=== PATIENT | female | born 1960 | race Caucasian/White ===

== ENCOUNTER 2024-06-20 21:41 | Inpatient (IN) | payer OTHER, SELFPAY ==
[2024-06-20 11:29] VITALS: BMI 68.8
[2024-06-20 12:11] VITALS: BP 132/79
--- NOTE | 2024-06-20 12:19 | ED.GENMED ---
ED Provider Triage
-
Patient seen by provider in Triage?: Seen in Triage
63 yo female presents due to an episode of aphasia/dysarthria occurring 5d ago, during halftime of the [employer] game. Lasted 15 mins, reportedly was fatigued for a few hours after the event. Went to today and had a reportedly abnml EKG thus sent
here. Did have labs at
EKG reviewed by me; no clear abnormalities however movement artifact in V4-V6. Concern for TIA. Send for CT head, repeat EKG
History of Present Illness
General
Chief Complaint: Dizziness
Course
Orders/Labs/Results
Orders:
Orders
06/20/24 12:18
CT Head W/o Iv Contrast Urgent
Comment:
Reason For Exam: TIA symptoms
Vital Signs
Initial and Last Documented VS:
Initial Vital Signs
Temp Pulse Resp BP Pulse Ox
98.1 F 87 20 132/79 98
06/20/24 12:11 06/20/24 12:11 06/20/24 12:11 06/20/24 12:11 06/20/24 12:11
Last Documented Vital Signs
Temp Pulse Resp BP Pulse Ox
98.1 F 87 20 132/79 98
06/20/24 12:11 06/20/24 12:11 06/20/24 12:11 06/20/24 12:11 06/20/24 12:11
ED Attending Note
-
Portions of this chart may have been created with voice recognition software.� Occasional wrong word or��sound alike� substitutions may have occurred due to the inherent limitations of voice recognition software.
Discharge Plan
Interventions
Interventions:
*Risk Screen - Suicide Last Done: 06/20/24 12:11
*General Assessment Last Done: 06/20/24 12:11
*Neglect/Abuse Screening Last Done: 06/20/24 12:11
Discharge Date and Time
Print Language: KYRGYZ
[2024-06-20 13:47] VITALS: BP 117/73
--- NOTE | 2024-06-20 16:23 | ED.GENMED ---
History of Present Illness
General
Chief Complaint: Dizziness
Source: patient
Exam Limitations: none
Time Seen by Provider: 06/20/24 16:21
Nursing documentation reviewed up to this point in time: agreed with
History of Present Illness
History of Present Illness:
The patient is a pleasant 63-year-old female who reports that last Sunday, which was 5 days ago, she was watching the [employer] game and suddenly felt dizzy and lightheaded. Patient reports that she noticed extreme sensitivity to the sunlight as well.
However, she denies any vision changes and headache. Patient reports that while driving in the car during that time, she tried to sit but the words sounded all ' jumbled up' and did not make sense. Her reports that she seemed to also have
a droop on 1 side of her face. The patient reports the symptoms lasted a few minutes and have gone away completely. Over the last 4 days she has felt absolutely fine and has had no symptoms of headache, weakness, numbness, dizziness, fevers or
chills. Patient reports that when the symptoms occurred last Sunday, she went by ambulance to [facility] and waited 2 hours but left. Patient saw her primary care doctor today who encouraged her to get a further workup. Patient reports she
feels well and has no complaints at this time. She reports her mom has a history of TIAs but she personally does not. Patient reports that she takes a daily aspirin of 325 mg and takes a statin but is unsure of the dose.
Past History
Past History
ED Past Medical History: Hypercholesterolemia and NIDDM
ED Past Surgical History: Other
Social History
Tobacco: Non-smoker
Alcohol: Other
Drug: None
Personal:
Living: with family
Employment: Other
Family History
Family History: Other
Review of Systems
Review of Systems
Allergies reviewed?: Yes
All Other Systems: ROS reviewed and negative except as documented in HPI and ROS
Constitutional: Reports no symptoms
EENT: Reports other (Light sensitivity which is gone away)
Respiratory: Reports no symptoms
Cardiac: Reports no symptoms
ABD/GI: Reports no symptoms
: Reports no symptoms
Musculoskeletal: Reports no symptoms
Skin: Reports no symptoms
Neurological: Reports other (Difficulty getting the correct words out)
Endocrine: Reports no symptoms
Hematologic/Lymphatic: Reports no symptoms
Psychiatric: Reports no symptoms
Phy Exam
Physical Exam
Physical Exam:
Physical Exam
General: no apparent distress, not acutely ill, smiling, conversational
Neck: supple. no meningeal signs. normal psoterior pharynx
Heart: s1/s2 regular rate and rhythm, no murmur. equal radial pulses.
Lungs: no acute respiratory distress. clear bilaterally
Abdomen: normal bowel sounds. not tender. no CVAT
Neuro: alert and orientedx3. no focal neurological deficits. Extraocular muscles intact. 5 out of 5 strength in all extremities without drift. Normal [id number]-[id number]
Skin: no rash
Psychiatric: well kept. interactive and cooperative
Extremities: no edema. no calf tenderness. negative homans. good distal pulses
Scores
NIH Stroke Score
Level of Consciousness: 0 - Alert
LOC Questions: 0-Answers both correctly
LOC Commands: 0-Performs both correctly
Best Horizontal Gaze: 0-Normal
Visual Holguin: 0=Normal, no visual loss
Facial Palsy: 0=Normal, symmetrical
Motor - Right Arm: 0=No drift 10 seconds
Motor - Left Arm: 0=No drift 10 seconds
Motor - Right Le-No drift 5 seconds
Motor - Left Le-No drift 5 seconds
Limb Ataxia: 0-Absent
Sensation: 0-Normal
Best Language: 0-No aphasia
Dysarthria: 0-Normal
Extinction and Inattention: 0-No abnormality
Total Score:: 0
Course
Orders/Labs/Results
Orders:
Orders
06/20/24 12:18
CT Head W/o Iv Contrast Urgent
Comment:
Reason For Exam: TIA symptoms
06/20/24 12:20
Electrocardiogram (*1) Urgent
Reason for Study: TIA/Stroke
EKG- Treatment ONCE
06/20/24 16:50
NEUROLOGY CONSULT Urgent
Consulting Provider: Ignacio Drake
Was physician already notified: Yes
Reason for consult: TIA
06/20/24 17:19
Complete Blood Count/With Diff Urgent
Comprehensive Metabolic Panel Urgent
06/20/24 17:24
CT Head & Neck Angio W/wo IV Urgent
Comment:
Reason For Exam: aphasia, facial droop. now no symtoms.
Abnormal Lab Results
06/20/24
17:19
RBC 3.65 L 10^6/uL
(4.20-5.40)
Hgb 11.2 L g/dL
(12.0-16.0)
Hct 32.5 L %
(37.0-47.0)
MPV 10.9 H fL
(7.4-10.4)
Chloride 108 H mmol/L
(98-107)
Carbon Dioxide 20 L mmol/L
(22-30)
BUN 41 H mg/dl
(7-17)
Creatinine 1.4 H mg/dL
(0.6-1.0)
Calcium 11.3 H mg/dl
(8.4-10.2)
06/20/24 17:19
06/20/24 17:19
Vital Signs
Initial and Last Documented VS:
Initial Vital Signs
Temp Pulse Resp BP Pulse Ox
98.1 F 87 20 132/79 98
06/20/24 12:11 06/20/24 12:11 06/20/24 12:11 06/20/24 12:11 06/20/24 12:11
Last Documented Vital Signs
Temp Pulse Resp BP Pulse Ox
98.0 F 88 18 141/76 97
06/20/24 13:47 06/20/24 19:42 06/20/24 19:42 06/20/24 19:42 06/20/24 19:42
MDM/Problems Addressed
Differential Diagnosis Includes:
Symptomatic hypertension, TIA, symptomatic hypotension
MDM/Problems Addressed:
Patient presents with resolved symptoms of difficulty speaking and possible facial droop
Chronic conditions affecting care: DM
Acute Exacerbation and/or Progression of Chronic Illness:
Patient is acutely hypertensive here, but only mildly, and hypertension may have contributed to those symptoms 5 days ago
Acute Exacerbation and/or Progression of Chronic Illness: HTN
*Radiology
Radiology exam reviewed: radiology read reviewed
*Pulse Oximetry
Patient hypoxic: no
*EKG
Interpreted by ED Provider?: Yes
Interpretation: abnormal
Comparison EKG: no comparison EKG present
Rate: normal
Rhythm: sinus and PAC's
Preston: normal axis
Interval: first degree heart block
QRS Pattern: normal QRS
Ischemia: no ischemia
*Critical Care Note
Total Time (30-74mins, 75-104mins- exclusive of procedures): Not Applicable
ED Attending Note
-
Portions of this chart may have been created with voice recognition software.� Occasional wrong word or��sound alike� substitutions may have occurred due to the inherent limitations of voice recognition software.
Discharge Plan
Departure
Patient Disposition: Admit
Date of Disposition: 06/20/24
Time of Disposition: 20:07
Admit to: Telemetry
Presentation/result/management discussed w/ accepting MD/DO: Hospitalist
Patient with high blood pressure during this ER visit?: Yes
Condition: Good
Covid-19: Not Applicable
Discharge Problem:
TIA
Referrals:
NONE,* [Family Provider] -
Interventions
Interventions:
*Risk Screen - Suicide Last Done: 06/20/24 12:11
*General Assessment Last Done: 06/20/24 12:11
*Neglect/Abuse Screening Last Done: 06/20/24 12:11
ED- Fall Risk Assessment Last Done: 06/20/24 16:36
*ED COVID-19 Vaccine History Last Done: 06/20/24 16:27
ED- Neurological Assessment Last Done: 06/20/24 16:34
ED Swallowing Screen Last Done: 06/20/24 16:34
Discharge Date and Time
Print Language: IRISH
[2024-06-20 16:38] VITALS: BP 151/90
[2024-06-20 17:32] LABS: % Basophils 0.8 % (0-2); % Eosinophils 3.7 % (0-6); % Immature Granulocytes 0.3 % (0-0.5); % Lymphocytes 30.4 % (20.5-51.1); % Monocytes 5.7 % (1.7-9.3); % Neutrophils 59.1 % (42.2-75.2); Absolute Basophils 0.1 10^3/uL (0-0.2); Absolute Eosinophils 0.4 10^3/uL (0-0.7); Absolute Monocytes 0.6 10^3/uL (0.1-0.6); Absolute Neutrophils 5.8 10^3/uL (1.4-6.5); Hematocrit 32.5 % (37.0-47.0); Hemoglobin 11.2 g/dL (12.0-16.0); Mean Corp Hgb Conc. 34.5 g/dL (33.0-37.0); Mean Corpuscular Hgb 30.7 pg (27.0-31.0); Mean Platelet Volume 10.9 fL (7.4-10.4); Nucleated Red Blood Cells % 0 %; Platelet Count 319 10^3/uL (130-400); Red Blood Cell Count 3.65 10^6/uL (4.20-5.40); Red Cell Dist. Width 13.4 % (11.5-14.5); White Blood Cell Count 9.8 10^3/uL (4.8-10.8)
[2024-06-20 17:47] LABS: ALT (SGPT) 26 U/L (0-35); Albumin 4.8 g/dl (3.5-5.0); Alkaline Phosphatase 64 U/L (38-126); Blood Urea Nitrogen 41 mg/dl (7-17); Calcium 11.3 mg/dl (8.4-10.2); Carbon Dioxide 20 mmol/L (22-30); Chloride 108 mmol/L (98-107); Estimated Creatinine Clearance 65 ml/min; Glucose 96 mg/dl (70-99); Potassium 4.5 mmol/L (3.5-5.1); Sodium 141 mmol/L (135-145); Total Bilirubin 0.3 mg/dl (0.2-1.3); Total Protein 7.4 g/dl (6.3-8.2); eGFR 42.01
[2024-06-20 17:56] LABS: AST (SGOT) 29 U/L (14-36)
--- NOTE | 2024-06-20 18:33 | CON.NEURO ---
Neuro Assessment/Plan
Assessment
Clinically this is a fully resolved TIA
can continue ASA 325, rosuvastatin needs 20 or 40 mg
she is 5 days out, no benefit to starting DAPT now
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
She opts for outpatient workup, obtain CTA and she can be discharged
f/u cardiology for holter monitor vs zio
Consultation
Order
Date of Consultation: 06/20/24
Requesting Provider: Mery Harris
Reason for Consult: TIA
Subjective/Objective
Subjective Data
Date of Service: June 20, 2024
She is a 63 year old woman presenting with episode of dizzy, lightheaded occurred 5 days ago, lasted intermittently for ~1 hr, with associated transient aphasia and facial droop lasting a few minutes.
spontaneously resolved. She took ambulance to [facility], left without being seen. Today saw her PCP
She takes ASA 325 daily, and Rosuvastatin ?dose
Today Saw her PCP, encouraged to come for further workup
Objective Data
Vital Signs
Temp Pulse Resp BP Pulse Ox
36.7 C 88 18 151/90 98
06/20/24 13:47 06/20/24 16:38 06/20/24 16:38 06/20/24 16:38 06/20/24 16:38
Lab Results
06/20/24 17:19
06/20/24 17:19
Sodium 141 mmol/L (135-145) 06/20/24 17:19
Potassium 4.5 mmol/L (3.5-5.1) 06/20/24 17:19
BUN 41 mg/dl (7-17) H 06/20/24 17:19
Glucose 96 mg/dl (70-99) 06/20/24 17:19
Calcium 11.3 mg/dl (8.4-10.2) H 01/03/25 17:19
Patient Allergies
No Known Allergies Allergy (Verified 06/20/24 12:17)
Physical Exam
-
AOx3, speech clear, language intact
VFF, EOMI, face symmetric
full strength b/l UE/LE
sensation intact touch/temp
DTR 1+ symmetric
[2024-06-20 19:42] VITALS: BP 141/76
--- NOTE | 2024-06-20 20:32 | HPS.HSE ---
Family Physician
-
Family Physician: * NONE
Chief Complaint
-
dizzy
History of Present Illness
63-year-old female with PMH for type 2 dm, hld, Thyroid nodules, kidney stones, kidney infection presented to us with dizzy, lightheaded while she was watching [employer] game on Sunday. denied syncopal episode. patient felt sensitive to light. she
was noted to have slurred speech and facial droop which lasted for only two minutes. the dizzy lasted for more than a hour. denied JOSÉ, blurry vision, numbness, tingling or any focal weakness. denied chest pain, sob.denied congestion, cough, fever,
chills. denied abdominal pain,n ,v,d. denied dysuria or hematuria.she waited at the [facility] for two hours on Sunday and left as it was very busy. she was evaluated by PCP, who recommended hospital evaluation.
CT with stenosis, mass in the gland. admitting for further management.
Medical History
Past Medical History
Past Medical History: Reports Other
Additional Past Medical History:
Hypertension type 2 diabetes
enlarged throid glands
kidney infection
HLd
Past Surgical History: Reports Other
Additional Past Surgical History:
thyroid gland mass removed
hernia surgery
c section
Social History
Tobacco: Non-smoker
Alcohol: None
Drug: None
Personal:
Living: With Family
Family History
Family History: Not pertinent
Allergies / Home Medications
Allergies reflects when Allergies were last updated in [facility].
Home Medications with original date entered in [facility]
Allergy/Medication List:
Allergies
Allergy/AdvReac Type Severity Reaction Status Date / Time
No Known Allergies Allergy Verified 06/20/24 12:17
Home Medications
aspirin 325 mg tablet 325 mg PO DAILY 06/20/24
atorvastatin 20 mg tablet 20 mg PO DAILY 06/20/24
dulaglutide 0.75 mg/0.5 mL subcutaneous pen injector (Trulicity) 0.75 mg SC QWEEK 06/20/24
ibuprofen-diphenhydramine citrate 200 mg-38 mg tablet (Advil PM) 2 cap PO HS PRN sleep 06/20/24
metformin 500 mg tablet 500 mg PO BID 06/20/24
vitamin D3-vitamin K2 1 tab PO DAILY 06/20/24
Review of Systems
-
Constitutional: Reports No Symptoms
EENT: Reports No Symptoms
Respiratory: Reports No Symptoms
Cardiac: Reports No Symptoms
Abdomen/GI: Reports No Symptoms
: Reports No Symptoms
Musculoskeletal: Reports No Symptoms
Skin: Reports No Symptoms
Neurological: Reports Dizzy
Endocrine: Reports No Symptoms
Hematologic/Lymphatic: Reports No Symptoms
Psych: Reports No Symptoms
Physical Exam
Vital Signs
Vital Signs
Temp Pulse Resp BP Pulse Ox
98.0 F 88 18 141/76 97
06/20/24 13:47 06/20/24 19:42 06/20/24 19:42 06/20/24 19:42 06/20/24 19:42
Physical Exam
General: Well Developed, Well Nourished and No Apparent Distress
HEENT: NormoCephalic, Moist mucous membranes and Atraumatic
Respiratory: Clear
Cardiac: S1/S2 and Regular Rhythm; No Murmur or Rub
GI: Soft, Non Tender, Non Distended and Normal Bowel Sounds; No Organomegaly
Rectal: Deferred by Provider
Musculoskeletal: No Clubbing, No Cyanosis and No Edema
Skin: No Rash
Neuro: AO x 3 and Nonfocal/grossly intact
Psych: Calm
Laboratory Results
-
06/20/24 17:19
06/20/24 17:19
Laboratory Results
Total Bilirubin 0.3 mg/dl (0.2-1.3) 06/20/24 17:19
AST 29 U/L (14-36) 06/20/24 17:19
ALT 26 U/L (0-35) 06/20/24 17:19
Alkaline Phosphatase 64 U/L (38-126) 06/20/24 17:19
Data Reviewed
-
CT Scan: Report Reviewed by me
Lab Data: Labs Reviewed by me
Impression/Plan
-
# Possible TIA
-Aspirin statin continued
-patient was evaluated by neuro
-deferred MRi as per neuro.
# Left carotid stenosis
-CT with impression of . SEVERE 70% DIAMETER STENOSIS in the LEFT CAROTID BIFURCATION caused by a large amount of calcific atherosclerotic plaque.
2. Less than 25% diameter stenosis in the proximal right internal carotid artery.
3. No CTA evidence for stenosis in either vertebral artery.
4. 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
5. Moderate discogenic degenerative disease at C5/C6 with a small disc-osteophyte complex causing mild spinal cord compression and central canal stenosis.
HEAD CTA:
1. Absent left posterior cerebral artery P1 segment with a small left posterior communicating artery supplying blood to the left posterior cerebral artery. Diagnostic possibilities are (1) proximal left posterior cerebral artery occlusion or (2)
congenital variant.
2. 70% diameter stenosis in the proximal left intracranial vertebral artery.
3. 70% diameter stenosis in the distal right intracranial vertebral artery.
4. Mild to moderate periventricular white matter leukoaraiosis in the frontal lobes.
-Head CT negative
-vascular consulted
# Right parotid salivary gland tumor
-oncology consulted
# Acute kidney injury/metabolic acidosis
-unclear chronicity
-Creatinine 1.4, BUN 41, CO2 20
-monitor BMP in am
#hxt of parathyroid mass removal
#HLD
-statin
#type 2 Dm
-hold metformin
-sliding scale
-CHO diet
#DVT prophylaxis
-scd
#CODe status
-full code
--- NOTE | 2024-06-20 21:12 | W.PN.UPDATE ---
Update Note
Progress Note Update
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 I agree with history and physical. I concur with the assessment and plan unless stated otherwise.
This is a 63-year-old female with past medical history of prior thyroidectomy, [id number]-frefxmjud diabetes, who presents to the emergency department from a primary care doctor's clinic for evaluation for dizziness and brief neurological episode.
Patient reported that she had an episode the evening few days ago when she was unable to speak. This lasted for about 3 to 5 minutes. She had no other focal neurological deficits. She followed up with her PMD was concerned and did an EKG and
based on that sent her to the emergency department. She is currently asymptomatic. NIHSS equals 0. She denied prior such episodes.
In the ED she was afebrile, hemodynamically stable with a blood pressure 140/75 and a pulse of 86. Head CT was unremarkable. ECG shows a normal sinus rhythm at a rate of 86 with 4 degree AV block and a OR of 214. Otherwise unremarkable. She had
a neurology consult and CT angio done which showed multiple areas of stenosis. SEVERE 70% DIAMETER STENOSIS in the LEFT CAROTID BIFURCATION caused by a large amount of calcific atherosclerotic plaque. Absent left posterior cerebral artery P1
segment with a small left posterior communicating artery supplying blood to the left posterior cerebral artery. Diagnostic possibilities are (1) proximal left posterior cerebral artery occlusion or (2) congenital variant. 70% diameter stenosis in
the proximal left intracranial vertebral artery. 70% diameter stenosis in the distal right intracranial vertebral artery. 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
A&P
Carotid stenosis
- admit to med/observation
- continue aspirin/statin for now
- Vascular consult
- neurology consulted and following
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
- incidental finding. No acute symptoms, oncology consult
DVT PPX - lovenox sq
Code status - full code
[2024-06-20 22:37] LABS: Glucose - Point of Care 121 mg/dl (70-99)
--- NOTE | 2024-06-20 23:01 | W.PN.UPDATE ---
Update Note
Progress Note Update
Patient requested to change code status. Discuss with the patient/ the meaning of full code and DNR. Patient decided to change code status from full code to Limited DNR (Ok with CPR, pressors and defibrillation. No for intubation/
ventilator). Discussion witnessed by the assigned nurse.
[2024-06-20 23:09] VITALS: BP 120/86; BMI 31.1
[2024-06-21 03:26] VITALS: BP 141/77
[2024-06-21 07:45] LABS: Glucose - Point of Care 103 mg/dl (70-99)
[2024-06-21 07:50] VITALS: BP 123/77
[2024-06-21] MEDS: ASPIRIN 325 MG PO (08:02)
[2024-06-21] MEDS: NOVOLOG FLEXPEN-LOW RESISTANCE SC ×3 (08:02→16:41)
[2024-06-21] MEDS: LIPITOR 20 MG PO (08:03)
[2024-06-21 09:01] LABS: Blood Urea Nitrogen 35 mg/dl (7-17); Calcium 10.5 mg/dl (8.4-10.2); Carbon Dioxide 19 mmol/L (22-30); Chloride 109 mmol/L (98-107); Estimated Creatinine Clearance 57 ml/min; Glucose 97 mg/dl (70-99); HDL Cholesterol 60 mg/dl; LDL Cholesterol, Calculated 93 mg/dl; Potassium 4.1 mmol/L (3.5-5.1); Sodium 140 mmol/L (135-145); Total Cholesterol 185 mg/dl (50-199); Triglyceride 161 mg/dl (10-149); Very Low Density Lipoprotein 32 mg/dl (0-30); eGFR > 60.00
--- NOTE | 2024-06-21 09:50 | W.PN.VS ---
Today's Communication / Plan
-
symptomatic carotid stenosis
tentative OR sunday for LCEA
Assessment/Plan
-
Appears to have a left hemispheric TIA and carotic stenosis
- symptomatic carotid lesion
- discussed carotid intervention with patient
- she is agreeable
- tentative plan for OR sunday
- npo sunday night
- cardiac evaluation for risk stratification (history of DM)
- also has parotid mass but ent is going to work up as outpatient
Subjective Data
-
Date of Service: June 21, 2024
patient presents after having what appears to be a tia 5 days ago
dizzy and lightheaded followed by slurred speach which resolved
no previous symptoms
no focal weakness
sx's resolves and patient was seen in [facility]
discharged
following up here per primary
Objective Data
-
Vital Signs
Temp Pulse Resp BP Pulse Ox
98 F 87 16 123/77 99
06/21/24 07:50 06/21/24 07:50 06/21/24 07:50 06/21/24 07:50 06/21/24 07:50
Intake and Output
06/20/24 06/21/24 06/22/24
06:59 06:59 06:59
Intake Total 0 / 0 180 / 180
Balance 0 / 0 180 / 180
Intake:
Oral fluids 0 / 0 180 / 180
Other:
Number of approximated MODERATE 1
amounts of urine
Lab Results
06/20/24 17:19
06/21/24 07:39
Calcium 10.5 mg/dl (8.4-10.2) H 06/21/24 07:39
Total Bilirubin 0.3 mg/dl (0.2-1.3) 06/20/24 17:19
AST 29 U/L (14-36) 06/20/24 17:19
ALT 26 U/L (0-35) 06/20/24 17:19
Alkaline Phosphatase 64 U/L (38-126) 06/20/24 17:19
Total Protein 7.4 g/dl (6.3-8.2) 06/20/24 17:19
Albumin 4.8 g/dl (3.5-5.0) 06/20/24 17:19
Physical Exam
-
rrr
ctab
2+ radial pulses bilat
+ carotid pulses bilat
CTA - 70%Left ICA and CCA stenosis
intracranial vertebral disease
[2024-06-21 10:02] LABS: Glycohemoglobin (HgbA1c) 5.6 % (4.0-5.6)
--- NOTE | 2024-06-21 10:37 | W.PN.NEURO.1 ---
Today's Communication / Plan
-
agree CEA
will sign off
Neuro Assessment/Plan
Assessment
Clinically this is a fully resolved TIA
likely due to L carotid 70% bifurcation stenosis, agree with CEA
bilateral vertebral stenosis, intracranial atherosclerosis can continue ASA 325, increase rosuvastatin 40
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
right parotid tumor 8 mm ENT consulted
Subjective/Objective
Subjective Data
Date of Service: June 21, 2024
no further neuro symptoms
yesterday evening, patient CTA showed L carotid bifurcation 70% stenosis, bilateral vertebral artery 70% stenosis
incidental 8.1 mm right parotid tumor
spoke with ED physician advised admission
Objective Data
Vital Signs
Temp Pulse Resp BP Pulse Ox
36.6 C 87 16 123/77 99
06/21/24 07:50 06/21/24 07:50 06/21/24 07:50 06/21/24 07:50 06/21/24 09:55
Lab Results
06/20/24 17:19
06/21/24 07:39
Sodium 140 mmol/L (135-145) 06/21/24 07:39
Potassium 4.1 mmol/L (3.5-5.1) 06/21/24 07:39
BUN 35 mg/dl (7-17) H 06/21/24 07:39
Glucose 97 mg/dl (70-99) 06/21/24 07:39
Calcium 10.5 mg/dl (8.4-10.2) H 06/21/24 07:39
LDL Cholesterol, Calc 93 mg/dl 06/21/24 07:39
Patient Allergies
No Known Allergies Allergy (Verified 06/20/24 12:17)
--- NOTE | 2024-06-21 11:46 | PTOTSP ---
Speech Therapy:
Pt presents with oropharyngeal swallow function that is within functional limits. Pt with no s/sx of aspiration across PO trials. Pt passed 3oz swallow screen. WBC WNL. No CXR completed this admission. Per neurology, pt exhibits 'fully resolved
TIA,' and opting for no MRI.
Recommend:
1. Continue IDDSI Level 7 (regular) solids and thin liquids
2. Medications whole with thins
3. General aspiration precautions
4. 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
[2024-06-21 11:57] LABS: Glucose - Point of Care 114 mg/dl (70-99)
[2024-06-21 12:11] VITALS: BP 160/96
--- NOTE | 2024-06-21 12:13 | W.PN.HOSP.TC ---
Today's Communication/Plan
-
see below plan
Assessment / Plan
Assessment / Plan
Assessment:
L hemispheric TIA 1 week ago with symptomatic L carotid stenosis
- CT: SEVERE 70% DIAMETER STENOSIS in the LEFT CAROTID BIFURCATION caused by a large amount of calcific atherosclerotic plaque.
- OR tentatively Sunday per Vascular
- continue ASA/Statin per Neurology. LDL 93
- Cardiac pre-op evaluation pending
R parotid Mass
- incidental finding
- d/w ENT Dr. Guzman. Outpatient f/u for FNA and further management.
RANDOLPH - resolved
Type 2 DM
- holding Metformin with recent contrast load
- continue SSI
- A1c: 5.6%
DVT ppx: Lovenox
Code: Full
Anticipated Discharge: > 48 hours
Subjective/Interval History
-
Date of Service: June 21, 2024
denies any new complaints at present
Objective Data
-
Labs:
Laboratory Results
06/21/24
07:39
Sodium 140
Potassium 4.1
Chloride 109 H
Carbon Dioxide 19 L
BUN 35 H
Creatinine 1.0
Glucose 97
Calcium 10.5 H
Vital Signs:
Vital Signs
Temp Pulse Resp BP Pulse Ox
98 F 86 18 160/96 100
06/21/24 12:11 06/21/24 12:11 06/21/24 12:11 06/21/24 12:11 06/21/24 12:11
I&O
06/20/24 06/21/24 06/22/24
06:59 06:59 06:59
Intake Total 0 / 0 180 / 180
Balance 0 / 0 180 / 180
Physical Exam
-
General: No Apparent Distress
HEENT: Normocephalic and Atraumatic
Respiratory: Negative Wheezes
Cardiac: Regular Rhythm and S1/S2
GI: Soft and Nontender
Genito-urinary: No Costovertebral Tender
Musculoskeletal: No Edema
Neuro: AO x 3
Hematologic / Lymphatic: No Lymphadenopathy
Psych: Calm
Data Reviewed
-
Total Time Spent with Patient (in minutes): 42
Labs: Labs Reviewed by me
--- NOTE | 2024-06-21 12:34 | CON.CAR ---
Consultation
Consultation Request
Date/Time Consultation Requested: 06/21/24
Date/Time Consultation Performed: 06/21/24
Requesting Provider: Dr. Sanchez
Performing Provider: Dr. Bain
Reason for Consultation: TIA, carotid artery stenosis
Medical History
-
Chief Complaint: TIA
History of Present Illness:
63-year-old female with hyperlipidemia, diabetes, and obesity who presented with dizziness and transient aphasia; found to have severe left carotid artery stenosis. Patient denies any chest pain, shortness of breath, palpitations, or syncopal
events.
Past Medical History
Past Medical History: Hypercholesterolemia, NIDDM and Other (Hyperparathyroidism)
Past Surgical History: (X 3) and Other (Parathyroidectomy, hernia repair)
Social History
Tobacco: Former Smoker (In college)
Alcohol: Occasional
Drug: None
Personal:
Living: With Family
Employment: Employed
Family History
Family History: Reviewed & Not Pertinent
Allergies / Home Medications
Allergy/AdvReac Type Severity Reaction Status Date / Time
No Known Allergies Allergy Verified 06/20/24 12:17
�Medication �Instructions �Recorded �Confirmed �Type
aspirin 325 mg tablet 325 mg PO DAILY Blood Clot 06/20/24 06/20/24 History
Prevention/Tx
atorvastatin 20 mg tablet 20 mg PO DAILY High Cholesterol 06/20/24 06/20/24 History
dulaglutide 0.75 mg/0.5 mL 0.75 mg SC QWEEK Diabetes 06/20/24 06/20/24 History
subcutaneous pen injector
(Trulicity)
ibuprofen-diphenhydramine citrate 2 cap PO HS PRN sleep 06/20/24 06/20/24 History
200 mg-38 mg tablet (Advil PM)
metformin 500 mg tablet 500 mg PO BID Diabetes 06/20/24 06/20/24 History
vitamin D3-vitamin K2 1 tab PO DAILY Supplement 06/20/24 06/20/24 History
Review of Systems
-
History Source: Patient
All other systems: Negative unless noted
Physical Exam
Vital Signs
Temp Pulse Resp BP Pulse Ox
98 F 86 18 160/96 100
06/21/24 12:11 06/21/24 12:11 06/21/24 12:11 06/21/24 12:11 06/21/24 12:11
Lab Results
06/20/24 17:19
06/21/24 07:39
Physical Exam
General: Well Developed, No Apparent Distress and Comfortable
HEENT: Anicteric
Respiratory: Clear
Cardiac: S1/S2 and Regular Rhythm
Breast: Deferred by me
GI: Soft and Non Tender
Rectal: Deferred by Provider
Musculoskeletal: No Clubbing, No Cyanosis and No Edema
Neuro: AO x 3
Psych: Calm
Impression / Plan
-
63-year-old female with hyperlipidemia, diabetes, and obesity who presented with dizziness and transient aphasia; found to have severe left carotid artery stenosis. Patient denies any chest pain, shortness of breath, palpitations, or syncopal
events.
Severe left carotid artery stenosis/preoperative cardiac evaluation:
-The patient has no active cardiac symptoms.
-EKG with no acute findings.
-Patient clinically stable on examination.
-Patient can proceed with vascular surgery on Sunday as scheduled; will obtain an echocardiogram early Sunday morning prior to surgery to establish baseline cardiac function--this will not preclude patient going to surgery, however.
Hyperlipidemia:
-LDL is 93 (goal is less than 55).
-Was on atorvastatin 20 mg daily; has been placed on high-dose Crestor 40 mg daily, which is appropriate.
Diabetes:
-Hemoglobin A1c is controlled at 5.6%.
Obesity:
-Weight loss recommended.
--- NOTE | 2024-06-21 14:39 | CON.MD ---
Consultation - Medical
-
R parotid mass
63 yo c recent TIA, had CTA showing carotid stenosis and for procedure on Sunday
Finding of R parotid mass on CTA
Pt unaware of mass, no pain or facial weakness
PE - No palpable mass in R parotid, facial nerve intact
No cervical adenopathy
R parotid mass
While final report lists this as an 8 cm mass, it is in fact an 8 mm mass, and its' detection was incidental
Typically benign, but should be followed
Possible FNA as outpt, but nonpalpable and could likely be monitored as well
No acute treatment, can be followed and worked up as outpt
[2024-06-21 15:47] VITALS: BP 152/98
[2024-06-21 16:40] LABS: Glucose - Point of Care 106 mg/dl (70-99)
[2024-06-21] MEDS: CRESTOR 40 MG PO (17:05)
[2024-06-21 19:38] VITALS: BP 132/73
[2024-06-21 22:04] LABS: Glucose - Point of Care 89 mg/dl (70-99)
[2024-06-21 23:36] VITALS: BP 143/74
[2024-06-22 03:37] VITALS: BP 130/67
[2024-06-22 07:25] VITALS: BP 121/92
[2024-06-22 07:27] LABS: Glucose - Point of Care 136 mg/dl (70-99)
--- NOTE | 2024-06-22 07:35 | W.PN.VS ---
Today's Communication / Plan
-
tentative or for vignesh am
Assessment/Plan
-
Appears to have a left hemispheric TIA and carotic stenosis
- symptomatic carotid lesion
- discussed carotid intervention with patient
- she is agreeable
- tentative plan for OR sunday
- npo sunday night
- ok from cardiology standpoint
- also has parotid mass but ent is going to work up as outpatient
Subjective Data
-
Date of Service: June 22, 2024
doing well
no issues
Objective Data
-
Vital Signs
Temp Pulse Resp BP Pulse Ox
97.7 F 81 16 130/67 99
06/22/24 03:37 06/22/24 03:37 06/22/24 03:37 06/22/24 03:37 06/22/24 03:37
Intake and Output
06/21/24 06/22/24 06/23/24
06:59 06:59 06:59
Intake Total 0 / 0 900 / 900
Balance 0 / 0 900 / 900
Intake:
Oral fluids 0 / 0 900 / 900
Other:
Number of approximated MODERATE 1 2
amounts of urine
Calcium 10.5 mg/dl (8.4-10.2) H 06/21/24 07:39
Total Bilirubin 0.3 mg/dl (0.2-1.3) 06/20/24 17:19
AST 29 U/L (14-36) 06/20/24 17:19
ALT 26 U/L (0-35) 06/20/24 17:19
Alkaline Phosphatase 64 U/L (38-126) 06/20/24 17:19
Total Protein 7.4 g/dl (6.3-8.2) 06/20/24 17:19
Albumin 4.8 g/dl (3.5-5.0) 06/20/24 17:19
Physical Exam
-
stable
rrr
ctab
neuro intact
[2024-06-22] MEDS: NOVOLOG FLEXPEN-LOW RESISTANCE SC (07:50)
[2024-06-22 08:24] LABS: Hematocrit 30.4 % (37.0-47.0); Hemoglobin 10.6 g/dL (12.0-16.0); Mean Corp Hgb Conc. 34.9 g/dL (33.0-37.0); Mean Corpuscular Hgb 30.7 pg (27.0-31.0); Mean Corpuscular Volume 88.1 fL (81.0-99.0); Mean Platelet Volume 10.8 fL (7.4-10.4); Platelet Count 278 10^3/uL (130-400); Red Blood Cell Count 3.45 10^6/uL (4.20-5.40); Red Cell Dist. Width 13.4 % (11.5-14.5); White Blood Cell Count 7.9 10^3/uL (4.8-10.8)
[2024-06-22] MEDS: ASPIRIN 325 MG PO (08:37)
[2024-06-22] MEDS: FLUSH (NSS) 1 FLUSH IV (08:38)
[2024-06-22 08:49] LABS: Blood Urea Nitrogen 30 mg/dl (7-17); Calcium 10.8 mg/dl (8.4-10.2); Carbon Dioxide 22 mmol/L (22-30); Chloride 107 mmol/L (98-107); Estimated Creatinine Clearance 63 ml/min; Glucose 118 mg/dl (70-99); Sodium 138 mmol/L (135-145); eGFR > 60.00
[2024-06-22 08:57] LABS: Potassium 4.3 mmol/L (3.5-5.1)
[2024-06-22 11:22] VITALS: BP 127/70
[2024-06-22 11:55] LABS: Glucose - Point of Care 168 mg/dl (70-99)
[2024-06-22] MEDS: NOVOLOG FLEXPEN-LOW RESISTANCE 1 UNITS SC (12:19)
--- NOTE | 2024-06-22 12:59 | W.PN.HOSP.TC ---
Today's Communication/Plan
-
NPO p MN for possible vascular/OR tomorrow
hold MFM use SSI
continue ASA/statin
Assessment / Plan
Assessment / Plan
Assessment:
L hemispheric TIA 1 week ago with symptomatic L carotid stenosis
- CT: SEVERE 70% DIAMETER STENOSIS in the LEFT CAROTID BIFURCATION caused by a large amount of calcific atherosclerotic plaque.
- OR tentatively Sunday per Vascular pending OR room/anesthesia availability.
- continue ASA/Statin per Neurology. LDL 93
- Cardiac pre-op evaluation appreciated. Echo Sunday
R parotid Mass (8 mm per ENT. Not 8 cmas reported from Radiology)
- incidental finding
- d/w ENT Dr. Guzman. Outpatient f/u for FNA and further management.
RANDOLPH - resolved
Type 2 DM
- holding Metformin with recent contrast load and possible contrast usage in OR
- continue SSI (moderate)
- A1c: 5.6%
DVT ppx: Lovenox
Code: Full
Anticipated Discharge: > 48 hours
Subjective/Interval History
-
Date of Service: June 22, 2024
no new complaints
Objective Data
-
Labs:
Laboratory Results
06/22/24
07:19
WBC 7.9
Hgb 10.6 L
Hct 30.4 L
Plt Count 278
Sodium 138
Potassium 4.3
Chloride 107
Carbon Dioxide 22
BUN 30 H
Creatinine 0.9
Glucose 118 H
Calcium 10.8 H
Vital Signs:
Vital Signs
Temp Pulse Resp BP Pulse Ox
97.7 F 66 18 127/70 97
06/22/24 11:22 06/22/24 11:22 06/22/24 11:22 06/22/24 11:22 06/22/24 11:22
I&O
06/21/24 06/22/24 06/23/24
06:59 06:59 06:59
Intake Total 0 / 0 900 / 900
Balance 0 / 0 900 / 900
Physical Exam
-
General: No Apparent Distress
HEENT: Normocephalic and Atraumatic
Respiratory: Negative Wheezes
Cardiac: Regular Rhythm and S1/S2
GI: Soft and Nontender
Genito-urinary: No Costovertebral Tender
Musculoskeletal: No Cyanosis
Neuro: AO x 3
Hematologic / Lymphatic: No Lymphadenopathy
Psych: Calm
Data Reviewed
-
Total Time Spent with Patient (in minutes): 41
Labs: Labs Reviewed by me
[2024-06-22 15:20] VITALS: BP 155/84
[2024-06-22 16:34] LABS: Glucose - Point of Care 179 mg/dl (70-99)
[2024-06-22] MEDS: NOVOLOG FLEXPEN-MODERATE RESISTANCE 1 UNITS SC (17:08)
[2024-06-22] MEDS: CRESTOR 40 MG PO (17:08)
[2024-06-22 19:30] VITALS: BP 162/88
[2024-06-22 21:22] LABS: Glucose - Point of Care 135 mg/dl (70-99)
[2024-06-22 23:59] VITALS: BP 172/87
[2024-06-23] VITALS (14 sets, daily range): BP systolic 101–149; BP diastolic 66–95
[2024-06-23 05:52] LABS: Glucose - Point of Care 117 mg/dl (70-99)
[2024-06-23 07:18] LABS: Hematocrit 31.9 % (37.0-47.0); Hemoglobin 10.9 g/dL (12.0-16.0); Mean Corp Hgb Conc. 34.2 g/dL (33.0-37.0); Mean Corpuscular Hgb 30.4 pg (27.0-31.0); Mean Corpuscular Volume 88.9 fL (81.0-99.0); Mean Platelet Volume 10.6 fL (7.4-10.4); Platelet Count 309 10^3/uL (130-400); Red Blood Cell Count 3.59 10^6/uL (4.20-5.40); Red Cell Dist. Width 13.2 % (11.5-14.5); White Blood Cell Count 9.6 10^3/uL (4.8-10.8)
--- NOTE | 2024-06-23 07:27 | W.PN.UPDATE ---
Update Note
Progress Note Update
Seen and evaluated. Reviewed all other notes and imaging studies. Discussed with patient findings. Discussed recommendations. Symptomatic left carotid artery stenosis. (She is right-hand dominant, but had dizziness/speech dysarthria). Seen by
neurology. [facility] to have had a TIA. Their recommendations also are for revascularization of the left carotid. Discussed with patient revascularization modalities. Discussed carotid endarterectomy versus carotid stenting (TCAR favorably over
transfemoral). Discussed based on her anatomy and my review of the imaging, recommendation for carotid endarterectomy. Discussed procedure at length. Discussed anticipated outcomes/recovery. Discussed risks including but not limited to bleeding,
infection, cardiac complication/AK, cranial nerve injury, stroke (in the symptomatic setting likely approximately 2%). She understands all wishes to proceed. Plan LEFT carotid endarterectomy.
I did discuss with her scheduling difficulties based on full schedule today, may need to wait till Sunday morning (06/25/2024). We will reassess later this morning into the afternoon to see how the schedule is proceeding to see if we can keep her
on the schedule for today or whether she will need to be moved to 06/25/24.
[2024-06-23] MEDS: NOVOLOG FLEXPEN-MODERATE RESISTANCE SC ×3 (07:30→19:22)
[2024-06-23 08:00] LABS: Blood Urea Nitrogen 32 mg/dl (7-17); Carbon Dioxide 24 mmol/L (22-30); Chloride 104 mmol/L (98-107); Estimated Creatinine Clearance 63 ml/min; Glucose 127 mg/dl (70-99); Potassium 4.3 mmol/L (3.5-5.1); Sodium 138 mmol/L (135-145); eGFR > 60.00
[2024-06-23] MEDS: ASPIRIN 325 MG PO (08:31)
--- NOTE | 2024-06-23 10:37 | W.PN.HOSP.TC ---
Today's Communication/Plan
-
NPO for possible OR with Vascular pending availability
await Echo read
Assessment / Plan
Assessment / Plan
Assessment:
L hemispheric TIA 1 week ago with symptomatic L carotid stenosis
- CT: SEVERE 70% DIAMETER STENOSIS in the LEFT CAROTID BIFURCATION caused by a large amount of calcific atherosclerotic plaque.
- OR tentatively today per Vascular pending OR room/anesthesia availability.
- continue ASA/Statin per Neurology. LDL 93
- Cardiac pre-op evaluation appreciated. Echo completed, report pending.
R parotid Mass (8 mm per ENT. Not 8 cmas reported from Radiology)
- incidental finding
- d/w ENT Dr. Guzman. Outpatient f/u for FNA and further management.
RANDOLPH - resolved
Type 2 DM
- holding Metformin with recent contrast load and possible contrast usage in OR
- continue SSI (moderate)
- A1c: 5.6%
DVT ppx: Lovenox
Code: Full
Anticipated Discharge: > 48 hours
Subjective/Interval History
-
Date of Service: June 23, 2024
no new complaints
Objective Data
-
Labs:
Laboratory Results
06/23/24
06:31
WBC 9.6
Hgb 10.9 L
Hct 31.9 L
Plt Count 309
Sodium 138
Potassium 4.3
Chloride 104
Carbon Dioxide 24
BUN 32 H
Creatinine 0.9
Glucose 127 H
Calcium 11.0 H
Vital Signs:
Vital Signs
Temp Pulse Resp BP Pulse Ox
97.7 F 86 16 143/80 98
06/23/24 07:50 06/23/24 07:50 06/23/24 07:50 06/23/24 07:50 06/23/24 07:50
I&O
06/22/24 06/23/24 06/24/24
06:59 06:59 06:59
Intake Total 900 / 900 1440 / 1440
Balance 900 / 900 1440 / 1440
Physical Exam
-
General: No Apparent Distress
HEENT: Normocephalic and Atraumatic
Respiratory: Negative Wheezes
Cardiac: Regular Rhythm and S1/S2
GI: Soft
Genito-urinary: No Costovertebral Tender
Neuro: AO x 3
Hematologic / Lymphatic: No Lymphadenopathy
Psych: Calm
Data Reviewed
-
Total Time Spent with Patient (in minutes): 42
Labs: Labs Reviewed by me
[2024-06-23 12:00] LABS: Glucose - Point of Care 124 mg/dl (70-99)
--- NOTE | 2024-06-23 14:53 | PTCARENOTE ---
Received patient this am AAOx3. NIH -0 GCS-15. Pt off unit this am for echo. Pt NPO for Left CEA today. Pt OOB ambulating in room with a steady gait independently. Pt offered no complaints. Made patient comfortable. Cont to assess patient status.
Pt sent to [facility] an 1445 to be prepped for Left CEA .
[2024-06-23] MEDS: ANCEF 10 IV (15:05)
[2024-06-23] MEDS: PERIDEX 0.12% ORAL RINSE 15 ML PO (15:06)
[2024-06-23 15:10] LABS: Glucose - Point of Care 113 mg/dl (70-99)
[2024-06-23] MEDS: BACTROBAN 2% OINTMENT 0.5 APPLIC NASAL (15:32)
--- NOTE | 2024-06-23 16:27 | W.SUR.PREOP ---
Pre-Operative Surgical Note
-
I have examined this patient prior to the performance of the scheduled procedure.
The patient's condition is unchanged from the time of the current History and
Physical and the patient is able to undergo the scheduled procedure.
--- NOTE | 2024-06-23 18:38 | W.SUR.POST ---
Surgical Immediate Post Op
Note
Pre Op Diagnosis: Carotid stenosis
Post Op Diagnosis: Same
Procedure Performed: Left CEA with bovine pericardial patch angioplasty and EEG monitoring, intraoperative shunting
Primary Surgeon: Srikanth
Assist: Ayah DELACRUZ
Anesthesia: General
Estimated Blood Loss: 50 cc
Fluids: See anesthesia flowsheet
Drains/Shunts: Shunt
Specimens/Cultures: Left carotid plaque
Doppler/Duplex/Angio (Y/N): Yes
Complications: None
Operative Findings: Woke from anesthesia moving all extremities
--- NOTE | 2024-06-23 18:50 | OR.RPT ---
Operative Report
Operative Report
PROCEDURE DATE: 06/23/2024
Preoperative diagnosis: Symptomatic critical left carotid artery stenosis
Postoperative diagnosis: Same
Procedure: Left carotid endarterectomy with bovine pericardial patch angioplasty and intraoperative EEG/SSEP monitoring (with temporary intraoperative shunt placement).
Surgeon: Srikanth
Electrical Estimator: ORA Poon, required for all aspects of procedure including assistance with traction/countertraction, following of suture line, assistance with closure.
Complications: None
Anesthesia: General
Indications for procedure:
Symptomatic left carotid stenosis. Symptoms of speech slurring/dysarthria 1 week prior. Risk/benefits/alternatives of carotid endarterectomy were fully discussed. Patient understood and wished to proceed.
Description of procedure:
Patient was identified brought to the operating room placed on the table in supine position. After the adequate administration of anesthesia and perioperative antibiotics she was prepped and draped in the standard surgical fashion. A standard
preoperative timeout was undertaken and everybody was in agreement the plan. A standard longitudinal incision was made in the left neck that was carried through the skin subcutaneous tissue. Using the electrocautery dissection was carried through
the platysma muscle layer and then alongside the anterior medial border of the sternocleidomastoid muscle. Then using a combination of sharp dissection with the Metzenbaum scissors and electrocautery I dissected along the anterior medial border of
the internal jugular vein. The common facial vein branch was ligated between silk ties and then divided. I then deepened my retraction. The common carotid artery was identified and carefully dissected away from the surrounding structures take
great care to avoid any injury to the structures. A vessel loop was passed around it which was double looped, but not yet tightened. Note the vagus nerve was visualized in its usual course posterior lateral to the common carotid artery, and was
protected from harm's way. I then continued my dissection up the common carotid artery to the bulb staying only on the anterior surface of the carotid artery. Then I carried the dissection up to the internal carotid artery and then to the distal
internal carotid artery. I identified where it was soft (approximately 2 cm beyond the origin, correlating to CT scan findings) and carefully circumferentially dissected the internal carotid artery with minimal mobilization and passed a vessel loop
around it. Note the hypoglossal nerve was preserved from harm's way. The patient was given an appropriate dose of heparin 8000 units. Next I dissected the anterior surface of the external carotid artery and superior thyroid branches. These were
then carefully circumferentially dissected with minimal mobilization and vessel loops passed around these which were double looped but not yet tightened. After 3 minutes of heparin circulation time and confirmation of optimization of the blood
pressure with my anesthesiology colleagues, I clamped the distal internal carotid artery where it was soft. There was no immediate EEG or SSEP changes. After 1 minute of test clamp time there was no changes noted. Therefore at this point, the
vessel loops on the external carotid artery and superior thyroid branches were tightened and the common carotid artery was clamped where it was soft proximally. An arteriotomy was made on the common carotid artery with an 11 blade and extended
using a Barron scissor. I extended the arteriotomy onto the mid to distal internal carotid artery. There was hard calcified plaque, and in the very distal carotid bulb, it resulted in a significant narrowing with irregular coral reef like posterior
plaque as well. A [place] was then used to endarterectomized the plaque. An endarterectomy plane was created, and the plaque was then endarterectomized. Distally I feathered the plaque out to a nice clean endpoint in the distal internal carotid
artery. Next I endarterectomized the intima back to normal intima in the common carotid artery, and the intima was cut flush there. I then grasped the plaque and everted plaque out of the origin of the external carotid artery. The plaque was then
sent off for specimen. During this time, it was noted that the SSEP tracings had reduced in terms of the right lower extremity (despite adequately maintained mean arterial blood pressures). This raised concern, and therefore a shunt was quickly
prepared and inserted in the standard fashion (Bonaparte shunt) into the internal carotid artery and secured with a vessel loop, and then allowed to backbleed, before inserting it into the common carotid artery, where it was secured with a shunt clamp
and a vessel loop. SSEPs then returned to baseline. At this point, the origin of the external carotid artery was carefully visualized and any fine debris were removed with fine forceps. Proximal and distal endpoints were then carefully inspected.
Any fine debris was removed with fine forceps, and the intima was noted to be nicely adherent proximally distally. Next any fine debris were removed throughout the endarterectomy bed with fine forceps. 3 interrupted 7-0 Prolene tacking sutures
were placed to tack the distal endpoint. I then flushed heparinized saline. I was very satisfied. Then, I used a bovine pericardial patch to sew a patch angioplasty with a running 6-0 Prolene suture. Prior to completing and tying down my suture
line, I removed the shunt, backbleeding the branches in doing so. The branches were then reclamped, heparinized saline flush, and then I quickly completed and tied down the suture line. There were no SSEP or EEG changes during this brief interval.
We then restored flow in the common carotid and external carotid arteries. Finally, we released flow in the internal carotid artery. There was excellent pulsatile flow in all 3 vessels. There was an excellent Doppler signal in the internal
carotid artery distal to the patch with a good normal low resistance Doppler signal. There was a good Doppler signal in the external carotid artery as well. Protamine was given to reverse the heparin. Hemostasis was completely achieved. We then
irrigated and confirmed full hemostasis. We then closed in layers with 2-0 Vicryl layer to reapproximate the sternocleidomastoid muscle, followed by 3-0 Vicryl platysma muscle running layer, followed by 4 Monocryl subcuticular stitch. Dermabond
was applied. The patient tolerated procedure well. She awoke moving all extremities to command with tongue in the midline.
[2024-06-23 18:54] LABS: Glucose - Point of Care 171 mg/dl (70-99)
[2024-06-23 19:01] LABS: Hematocrit 29.2 % (37.0-47.0); Mean Corp Hgb Conc. 34.2 g/dL (33.0-37.0); Mean Corpuscular Hgb 30.8 pg (27.0-31.0); Mean Corpuscular Volume 89.8 fL (81.0-99.0); Mean Platelet Volume 10.4 fL (7.4-10.4); Platelet Count 266 10^3/uL (130-400); Red Blood Cell Count 3.25 10^6/uL (4.20-5.40); Red Cell Dist. Width 13.2 % (11.5-14.5); White Blood Cell Count 9.2 10^3/uL (4.8-10.8)
[2024-06-23 19:08] LABS: Hepatitis C Antibody Negative (Negative)
[2024-06-23 19:11] LABS: INR 1.08; PT 14.3 Sec (11.4-14.6)
[2024-06-23 19:12] LABS: APTT 33.6 Sec (23.4-35.0)
[2024-06-23 19:14] LABS: Blood Urea Nitrogen 31 mg/dl (7-17); Calcium 10.5 mg/dl (8.4-10.2); Carbon Dioxide 17 mmol/L (22-30); Chloride 108 mmol/L (98-107); Estimated Creatinine Clearance 71 ml/min; Glucose 145 mg/dl (70-99); Potassium 4.2 mmol/L (3.5-5.1); Sodium 137 mmol/L (135-145); eGFR > 60.00
[2024-06-23] MEDS: NSS 1000 IV (19:52)
[2024-06-23] MEDS: DILAUDID 0.25 MG IV (19:55)
--- NOTE | 2024-06-23 20:20 | SUR.PHASEI ---
patient in pacu post op left carotid, right radial fidelina , zeroed at phlebostatic axis, no neuro deficit noted, initially denied pain. Tearful - worried about her son - anxious to see family. updated, labs sent, Dr Duke visits. Discharge
at 195 - c/o neck 'sore' - 09/25. Thinks she wants something for pain but very anxious to see family. Medicated with dilaudid 0.25mg IV for incisional neck pain and transported to [facility] - transfer from stretcher to bed in [facility] - hand off at
bedside. Family updated.
[2024-06-23] MEDS: CRESTOR 40 MG PO (21:28)
[2024-06-23] MEDS: NOVOLOG FLEXPEN-MODERATE RESISTANCE 1 UNITS SC (21:29)
[2024-06-23 21:39] LABS: Glucose - Point of Care 167 mg/dl (70-99)
--- NOTE | 2024-06-23 22:00 | PTCARENOTE ---
PACU brought pt up, pt anxious, MONTALVO AAOx3, sinus on the monitor c 1st degree, + pulses no edema, R radial A-line zeroed c cuff correlation, lungs clear on RA SpO2 100%, BSx4 round soft nontender, PW pt due to void, L neck wound approximated with
surgical adhesive, 18G L hand, 20G LAC, 20G RFA, NS 80ml, call gonsales within reach, @ bedside and updated, Neuro checks per worklist, otherwise refer to documentation.
[2024-06-23] MEDS: ROXICODONE 5 MG PO (23:05)
[2024-06-24] MEDS: AFRIN NASAL SPRAY 2 SPRAYS NASAL ×2 (00:17→07:15)
--- NOTE | 2024-06-24 00:44 | PTCARENOTE ---
systems reviewed, 4L NC added pt has sleep apnea, dsats in the low 80's, Afrin ordered @ pts request, neuro checks per worklist, otherwise refer to documentation.
[2024-06-24] MEDS: ROXICODONE 5 MG PO (04:19)
[2024-06-24 04:30] LABS: Hematocrit 27.2 % (37.0-47.0); Hemoglobin 9.5 g/dL (12.0-16.0); Mean Corp Hgb Conc. 34.9 g/dL (33.0-37.0); Mean Corpuscular Hgb 30.6 pg (27.0-31.0); Mean Corpuscular Volume 87.7 fL (81.0-99.0); Mean Platelet Volume 10.7 fL (7.4-10.4); Platelet Count 271 10^3/uL (130-400); Red Cell Dist. Width 13.3 % (11.5-14.5)
[2024-06-24 04:40] LABS: INR 1.02; PT 13.7 Sec (11.4-14.6)
[2024-06-24 04:41] LABS: APTT 30.6 Sec (23.4-35.0)
[2024-06-24 04:53] LABS: Blood Urea Nitrogen 34 mg/dl (7-17); Calcium 10.3 mg/dl (8.4-10.2); Carbon Dioxide 19 mmol/L (22-30); Chloride 108 mmol/L (98-107); Estimated Creatinine Clearance 63 ml/min; Glucose 139 mg/dl (70-99); Potassium 4.6 mmol/L (3.5-5.1); Sodium 137 mmol/L (135-145); eGFR > 60.00
--- NOTE | 2024-06-24 05:28 | PTCARENOTE ---
systems reviewed, oxy given for pain per MAR, minimal urine output in container from PW, pt bladder scanned >1000ml, placed on bed [place] pt urinated rescanned for 900, obtained order for straight cath, labs sent, otherwise refer to documentation.
[2024-06-24 06:00] VITALS: BMI 30.6
--- NOTE | 2024-06-24 07:10 | CON.INTV ---
Consultation
Consultation Request
Date/Time Consultation Requested: 06/24/24
Date/Time Consultation Performed: 06/24/24
Performing Provider: Lois
Reason for Consultation: ICU
Medical History
-
History of Present Illness:
Patient is a 63-year-old female with previous history of diabetes, hyperlipidemia, presenting to ER with dizziness lightheadedness that began on Sunday. She then developed slurred speech, facial droop which lasted for 2 minutes. Initial imaging
demonstrated stenosis, parotid gland mass. She was admitted to on 06/20/2024, underwent left CEA with bovine pericardial patch angioplasty EEG monitoring on 06/23/2024. She is transferred to ICU for postoperative management.
Past Medical History
Past Medical History: Other (see list below)
Social History
Tobacco: Non-smoker
Alcohol: None
Drug: None
Family History
Family History: Reviewed & Not Pertinent
Allergies / Home Medications
Allergies
Allergy/AdvReac Type Severity Reaction Status Date / Time
No Known Allergies Allergy Verified 06/20/24 12:17
Home Medications
�Medication �Instructions �Recorded �Confirmed �Last Taken �Type
aspirin 325 mg tablet 325 mg PO DAILY Blood Clot 06/20/24 06/20/24 Unknown History
Prevention/Tx
atorvastatin 20 mg tablet 20 mg PO DAILY High Cholesterol 06/20/24 06/20/24 Unknown History
dulaglutide 0.75 mg/0.5 mL 0.75 mg SC QWEEK Diabetes 06/20/24 06/20/24 06/18/24 History
subcutaneous pen injector
(Trulicity)
ibuprofen-diphenhydramine citrate 2 cap PO HS PRN sleep 06/20/24 06/20/24 Unknown History
200 mg-38 mg tablet (Advil PM)
metformin 500 mg tablet 500 mg PO BID Diabetes 06/20/24 06/20/24 Unknown History
vitamin D3-vitamin K2 1 tab PO DAILY Supplement 06/20/24 06/20/24 Unknown History
Review of Systems
-
History Source: Patient
All other systems: Negative unless noted
Vitals / Labs / Diagnostic Testing
Vital Signs
Temp Pulse Resp BP Pulse Ox
98.0 F 72 15 116/71 99
06/24/24 03:30 06/24/24 06:00 06/24/24 06:00 06/23/24 20:15 06/24/24 06:00
Lab Data
06/24/24 04:08
06/24/24 04:08
Laboratory Results
06/23/24 06/24/24
18:49 04:08
PT 14.3 13.7
INR 1.08 1.02
APTT 33.6 30.6
Diagnostic Testing:
Physical Exam
-
HEENT: Normocephalic, Anicteric and Moist Mucous Membranes
Cardiovascular: S1/S2 and Regular Rhythm
Respiratory: Clear and Non-Labored Respirations
GI: Soft, Non Distended and Non Tender
Neurology: Awake, Alert, Oriented and No Motor Deficits
Skin: Warm, Dry and Good Color
General: Comfortable and Other (NAD)
Assessment
-
Patient is a 63-year-old female with previous history of diabetes, hyperlipidemia, presenting to ER with dizziness lightheadedness that began on Sunday. She then developed slurred speech, facial droop which lasted for 2 minutes. Initial imaging
demonstrated stenosis, parotid gland mass. She was admitted to on 06/20/2024, underwent left CEA with bovine pericardial patch angioplasty EEG monitoring on 06/23/2024. She is transferred to ICU for postoperative management.
Left carotid stenosis status post left CEA 06/23/2024
TIA
Slurred speech, facial droop onset 06/15, admitted 06/20/2024
Incidental parotid gland mass, 8 mm
Hypercalcemia
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
Non insulin-dependent diabetes
Obesity, BMI 30
Plan
Patient is s/p L CEA by vascular surgery service, POD #1
Continue observation following procedure
Follow neurovascular checks per protocol
ASA, betablocker and statin on board
Follow BP monitoring and parameters as set by primary team
Cardiac history noted
Monitor on telemetry
Pain control per protocol
RASS goal 0
No prior history of pulmonary disease, nonsmoker
Stable on RA, no complaints
No prior CXR for review
No prior PFTs for review
Encouraged IS
Diet advancement per protocol
Aspiration precautions
GI prophylaxis if indicated for stress ulcer prevention in the critically ill
Creat at baseline, follow UO
Critical I/Os
Void trials
Replete electrolytes as needed
No signs/symptoms suspicious for infectious etiology at this time
Will observe off antibiotics for now
Follow temperatures/CBC
Hb and platelets postoperatively stable
DVT prophylaxis recommended if not contraindicated based on procedural history -- heparin SQ and mechanical SCDs
Encouraged OOB/PT/OT/ambulation once cleared by surgical team
Discharge planning today per team
Diagnostic Data
Chest X-Ray:
CT Scan:
HCT 06/20/24- No acute intracranial abnormality noted.
H&N - IMPRESSION:
NECK CTA:
1. SEVERE 70% DIAMETER STENOSIS in the LEFT CAROTID BIFURCATION caused by a large amount of calcific atherosclerotic plaque.
2. Less than 25% diameter stenosis in the proximal right internal carotid artery.
3. No CTA evidence for stenosis in either vertebral artery.
4. 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
5. Moderate discogenic degenerative disease at C5/C6 with a small disc-osteophyte complex causing mild spinal cord compression and central canal stenosis.
HEAD CTA:
1. Absent left posterior cerebral artery P1 segment with a small left posterior communicating artery supplying blood to the left posterior cerebral artery. Diagnostic possibilities are (1) proximal left posterior cerebral artery occlusion or (2)
congenital variant.
2. 70% diameter stenosis in the proximal left intracranial vertebral artery.
3. 70% diameter stenosis in the distal right intracranial vertebral artery.
4. Mild to moderate periventricular white matter leukoaraiosis in the frontal lobes.
Echo: 06/23/24- Normal biventricular size and systolic function without regional wall motion abnormality. Estimated LVEF 65-70%. Mild concentric left ventricular hypertrophy. Aortic sclerosis without stenosis. No prior study available for
comparison.
PFT's:
Reports and relevant images were personally reviewed.
-----
Critical care time 50 mins -- this includes review of history, physical exam, medications, hemodynamic/ventilator parameters, laboratory data, imaging and discussion with house staff, pharmacy, respiratory therapy, cartridge maker, and nursing.
[2024-06-24] MEDS: NSS 1000 IV (07:15)
[2024-06-24 07:53] VITALS: BP 147/80
[2024-06-24 07:56] LABS: Glucose - Point of Care 141 mg/dl (70-99)
[2024-06-24 08:12] VITALS: BP 147/80
--- NOTE | 2024-06-24 08:13 | W.PN.VS ---
Today's Communication / Plan
-
Discussed with Dr. Dennison
Assessment/Plan
-
POD 1 left CEA
Plan:
-DC A-line
-DC IV fluids
-Out of bed/ambulate
-P.o. medications
-Increase diet
-Likely ready for DC from vascular standpoint once above is completed
Subjective Data
-
Date of Service: June 24, 2024
Patient seen at bedside this a.m. No events overnight. Patient offers no complaints at this time. Was on Cardene drip for short time which has been weaned off this morning.
Objective Data
-
Vital Signs
Temp Pulse Resp BP Pulse Ox
98.0 F 75 20 116/71 98
06/24/24 03:30 06/24/24 07:30 06/24/24 07:30 06/23/24 20:15 06/24/24 07:43
Intake and Output
06/23/24 06/24/24 06/25/24
06:59 06:59 06:59
Intake Total 1440 / 1440 1040 / 1180 220 / 220
Output Total 850 / 850
Balance 1440 / 1440 190 / 330 220 / 220
Intake:
Oral fluids 1440 / 1440 120 / 180 60 / 60
IV fluids (Total) 920 / 1000 160 / 160
Nss 1,000 ml @ 80 mls/hr IV . 720 / 800 160 / 160
[id number] RERE Rx#:[id number]
normosol 200 / 200
Output:
Urine, Voided 0 / 0
Straight cath output 850 / 850
Other:
Number of approximated MODERATE 2 2
amounts of urine
Lab Results
06/24/24 04:08
06/24/24 04:08
Calcium 10.3 mg/dl (8.4-10.2) H 06/24/24 04:08
Total Bilirubin 0.3 mg/dl (0.2-1.3) 06/20/24 17:19
AST 29 U/L (14-36) 06/20/24 17:19
ALT 26 U/L (0-35) 06/20/24 17:19
Alkaline Phosphatase 64 U/L (38-126) 06/20/24 17:19
Total Protein 7.4 g/dl (6.3-8.2) 06/20/24 17:19
Albumin 4.8 g/dl (3.5-5.0) 06/20/24 17:19
Physical Exam
-
AAOx3
No tachypnea on room air
No tachycardia
Neck site clean, dry, intact, soft, flat
Moves all extremities equally
Tongue midline
--- NOTE | 2024-06-24 08:13 | PTCARENOTE ---
Updated assessment, vital signs ongoing and as documented. Vascular team at bedside this am. Start line removal with plan for mobility training and out of bed this am. Ordering breakfast now, accu data as documented. Follow up medication via emar.
IVF capped. Cardiology team at bedside. Update both vascular and cardiology clear to dc await hospitalist team and follow plan of cares. Continue patient care needs and follow teaching thru day.
[2024-06-24] MEDS: ASPIRIN 325 MG PO (08:21)
--- NOTE | 2024-06-24 08:28 | PTCARENOTE ---
Hospitalist team at [facility]. Follow up plan of cares. Await updates between teams will follow up plan of cares and possible discharge.
--- NOTE | 2024-06-24 08:44 | W.PN.CD ---
Today's Communication / Plan
-
Cont crestor 40
Likely d/c today
We will sign off please call with questions/concerns.
Impression / Plan
-
63-year-old female with hyperlipidemia, diabetes, and obesity who presented with dizziness and transient aphasia; found to have severe left carotid artery stenosis. Patient denies any chest pain, shortness of breath, palpitations, or syncopal
events.
Severe left carotid artery stenosis/preoperative cardiac evaluation:
-The patient has no active cardiac symptoms.
-EKG with no acute findings.
-Patient clinically stable on examination.
-Patient can proceed with vascular surgery on Sunday as scheduled; will obtain an echocardiogram early Sunday morning prior to surgery to establish baseline cardiac function--this will not preclude patient going to surgery, however.
Hyperlipidemia:
-LDL is 93 (goal is less than 55).
-Was on atorvastatin 20 mg daily; has been placed on high-dose Crestor 40 mg daily, which is appropriate.
Diabetes:
-Hemoglobin A1c is controlled at 5.6%.
Obesity:
-Weight loss recommended.
Subjective: Feels well wants to leave
Physical Exam
Vital Signs/Labs
Vital Signs
Temp Pulse Resp BP Pulse Ox
97.9 F 67 20 147/80 99
06/24/24 07:40 06/24/24 08:12 06/24/24 08:12 06/24/24 08:12 06/24/24 08:12
06/23/24 06/24/24 06/25/24
06:59 06:59 06:59
Actual Weight 172 lb 13.478 oz
06/24/24 04:08
06/24/24 04:08
PT 13.7 Sec (11.4-14.6) 06/24/24 04:08
INR 1.02 06/24/24 04:08
APTT 30.6 Sec (23.4-35.0) 06/24/24 04:08
Triglycerides 161 mg/dl (10-149) H 06/21/24 07:39
LDL Cholesterol, Calc 93 mg/dl 06/21/24 07:39
VLDL Cholesterol, Calc 32 mg/dl (0-30) H 06/21/24 07:39
HDL Cholesterol 60 mg/dl 06/21/24 07:39
Physical Exam
Constitutional: No acute distress and Comfortable
EENT: Anicteric
Cardiovascular: Rhythm & rate is regular and Pedal edema is absent
Respiratory: Respiratory effort normal and Lungs clear to auscul.
GI: Soft
Neuro/Psych: AO x 3
Data Reviewed
-
Date of Service: June 24, 2024
EKG: Tracing Personally Visualized and interpreted (sr)
Echo: Report Reviewed by me
Labs: Labs Reviewed by me
[2024-06-24 09:49] VITALS: BP 129/87
--- NOTE | 2024-06-24 09:59 | PTCARENOTE ---
Vascular team on rounds. Update plan of cares, await follow up with hospitalist team. Plan for late day discharge with continued progress. Will ambulate room and ruiz continue to follow. VSS as documented.
--- NOTE | 2024-06-24 10:23 | W.PN.HOSP.TC ---
Today's Communication/Plan
-
dc home with vascular f/u
Assessment / Plan
Assessment / Plan
Assessment:
L hemispheric TIA 1 week ago with symptomatic L carotid stenosis
- CT: SEVERE 70% DIAMETER STENOSIS in the LEFT CAROTID BIFURCATION caused by a large amount of calcific atherosclerotic plaque.
- s/p L CEA 06/23/24
- continue ASA/Statin at discharge
- Echo: mild LVH otherwise normal
R parotid Mass (8 mm per ENT. Not 8 cm's reported from Radiology)
- incidental finding
- d/w ENT Dr. Guzman. Outpatient f/u for FNA and further management.
RANDOLPH - resolved
Type 2 DM
- Resume Metformin in 24 hours
- Resume Trulicity Sunday
- continue SSI (moderate)
- A1c: 5.6%
DVT ppx: Lovenox
Code: Full
More than 30 minutes spent in discharge including
Final examination of the patient
Summarizing hospital stay
Instructions for continuing care to all relevant caregivers
Preparation of discharge records, prescriptions, and referral forms
Total time spent (in minutes): 41
Anticipated Discharge: Within 24 hours
Subjective/Interval History
-
Date of Service: June 24, 2024
s/p CEA
doing well, no complaints
Objective Data
-
Labs:
Laboratory Results
06/24/24
04:08
WBC 10.0
Hgb 9.5 L
Hct 27.2 L
Plt Count 271
PT 13.7
INR 1.02
APTT 30.6
Sodium 137
Potassium 4.6
Chloride 108 H
Carbon Dioxide 19 L
BUN 34 H
Creatinine 0.9
Glucose 139 H
Calcium 10.3 H
Vital Signs:
Vital Signs
Temp Pulse Resp BP Pulse Ox
97.9 F 67 20 129/87 99
06/24/24 07:40 06/24/24 09:48 06/24/24 09:48 06/24/24 09:49 06/24/24 08:12
I&O
06/23/24 06/24/24 06/25/24
06:59 06:59 06:59
Intake Total 1440 / 1440 1040 / 1180 580 / 580
Output Total 850 / 850
Balance 1440 / 1440 190 / 330 580 / 580
Physical Exam
-
General: No Apparent Distress
HEENT: Normocephalic and Atraumatic
Respiratory: Negative Wheezes
Cardiac: Regular Rhythm and S1/S2
GI: Soft and Nontender
Musculoskeletal: No Edema
Neuro: AO x 3
Psych: Calm
Data Reviewed
-
Total Time Spent with Patient (in minutes): 41
Labs: Labs Reviewed by me
--- NOTE | 2024-06-24 10:29 | W.DS.TRANS ---
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
-
Discharge Instructions:
Discharge Diagnosis/Procedures Left carotid endarterectomy
Diet As tolerated,Diabetic, Carb Controlled
Activity No strenuous activity
Driving Restrictions Not until seen by your Dr
Bathing Restrictions OK to Shower
Instructions:
Stand-Alone Forms: DC Instr - Vascular OR
Changes to Home Medications: Yes
Discharge Medications:
DC Medications w/original date entered in [employer]
aspirin 325 mg tablet 325 mg PO DAILY Blood Clot Prevention/Tx 06/20/24
dulaglutide 0.75 mg/0.5 mL subcutaneous pen injector (TrulicSyncplicity) 0.75 mg SC QWEEK Diabetes 06/20/24
ibuprofen-diphenhydramine citrate 200 mg-38 mg tablet (Advil PM) 2 cap PO HS PRN sleep 06/20/24
metformin 500 mg tablet 500 mg PO BID Diabetes 06/20/24
vitamin D3-vitamin K2 1 tab PO DAILY Supplement 06/20/24
acetaminophen 325 mg tablet 650 mg (2 x 325 mg) PO Q4HPRN PRN JOSÉ, mild pain, or temp >100.4F #100 tabs 06/24/24
rosuvastatin 40 mg tablet 40 mg PO QPM #30 tabs 06/24/24
Home Medication Changes
high intensity statin
Pending Results: No
Total time spent discharging patient (in min): 41
[2024-06-24 10:54] VITALS: BP 117/72
--- NOTE | 2024-06-24 10:59 | PTCARENOTE ---
Case management into see patient. Updated discharge plan of care with patient and . VS as documented. prep foir discharge post follow up[ teaching.
[2024-06-24 11:02] VITALS: BP 117/72
--- NOTE | 2024-06-24 11:16 | CM ---
CM following rte:discharge planning.
Discussed in Rounds, reviewed pt's chart, met with pt and pt's at bedside.
Pt is a 63 year old female, admitted with primary dx of POD 1 left CEA.
Pt reports she lives with in a 2SH townhouse, 3 steps to enter, has 3 supportive sons. 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
Discharge order noted. Both pt and her are aware and stated he will transport his spouse home.
Pharmacy: [facility]
D/C plan: home no needs. to transport.
== END 2024-06-24 11:43 | disposition home or self-care (01) | DRG 38 ==
LOC: ICU 21:41
PROVIDERS: Nurse Practitioner Acute Care; Registered Nurse; Surgery; Surgery Vascular Surgery; ADMITTING PHYSICIAN Internal Medicine; ATTENDING PHYSICIAN Internal Medicine; CONSULT PHYSICIAN Internal Medicine; CONSULT PHYSICIAN Otolaryngology; CONSULT PHYSICIAN Psychiatry & Neurology Clinical Neurophysiology; EMERGENCY PHYSICIAN Emergency Medicine
PROC: 03UL0KZ Supplement Left Internal Carotid Artery with Nonautologous Tissue Substitute, Open Approach (ICD-10-PCS; 2024-06-23)
PROC: 03CL0ZZ Extirpation of Matter from Left Internal Carotid Artery, Open Approach (ICD-10-PCS; 2024-06-23)
DX: I65.22 Occlusion and stenosis of left carotid artery (principal); E87.20 Acidosis, unspecified; M50.022 Cervical disc disorder at C5-C6 level with myelopathy; N17.9 Acute kidney failure, unspecified; R42 Dizziness and giddiness; R29.810 Facial weakness; E11.9 Type 2 diabetes mellitus without complications; D37.030 Neoplasm of uncertain behavior of the parotid salivary glands; R47.1 Dysarthria and anarthria; E78.00 Pure hypercholesterolemia, unspecified; E21.2 Other hyperparathyroidism; E66.9 Obesity, unspecified; M25.78 Osteophyte, vertebrae; I70.0 Atherosclerosis of aorta; I34.81 Nonrheumatic mitral (valve) annulus calcification; I10 Essential (primary) hypertension; E04.1 Nontoxic single thyroid nodule; Z66 Do not resuscitate; Z87.442 Personal history of urinary calculi; Z79.85 Long-term (current) use of injectable non-insulin antidiabetic drugs; Z79.84 Long term (current) use of oral hypoglycemic drugs; Z79.82 Long term (current) use of aspirin; Z87.891 Personal history of nicotine dependence; Z68.30 Body mass index [BMI] 30.0-30.9, adult; Z86.73 Personal history of transient ischemic attack (TIA), and cerebral infarction without residual deficits
CPT/HCPCS: 88304; 88311; 35301; 70450; 70496; 70498; 80048; 80053; 80061; 82962; 83036; 85025; 85027; 85610; 85730; 86803; 86850; 86900; 86901; 92610; 93005; 93306; 95938; 95941; 95955; 99285; Q9967

== ENCOUNTER → 2024-07-31 10:02 | Outpatient (REF) | payer OTHER, SELFPAY | LOC: DHVS 10:02 | PROVIDERS: ATTENDING PHYSICIAN Physician Assistant | DX: I65.22 Occlusion and stenosis of left carotid artery (principal) | CPT/HCPCS: 93880 ==

== ENCOUNTER 2024-10-28 22:09 | Inpatient (IN) | payer BC, MEDICARE, SELFPAY ==
[2024-10-28 15:10] VITALS: BP 128/107
[2024-10-28 15:26] LABS: % Basophils 0.5 % (0-2); % Eosinophils 0.2 % (0-6); % Immature Granulocytes 0.3 % (0-0.5); % Lymphocytes 22.8 % (20.5-51.1); % Monocytes 4.4 % (1.7-9.3); % Neutrophils 71.8 % (42.2-75.2); Absolute Basophils 0.1 10^3/uL (0-0.2); Absolute Lymphocytes 2.6 10^3/uL (1.2-3.4); Absolute Monocytes 0.5 10^3/uL (0.1-0.6); Absolute Neutrophils 8.3 10^3/uL (1.4-6.5); Hematocrit 27.5 % (37.0-47.0); Hemoglobin 9.6 g/dL (12.0-16.0); Mean Corp Hgb Conc. 34.9 g/dL (33.0-37.0); Mean Corpuscular Hgb 30.2 pg (27.0-31.0); Mean Corpuscular Volume 86.5 fL (81.0-99.0); Mean Platelet Volume 10.1 fL (7.4-10.4); Nucleated Red Blood Cells % 0 %; Platelet Count 438 10^3/uL (130-400); Red Blood Cell Count 3.18 10^6/uL (4.20-5.40); White Blood Cell Count 11.5 10^3/uL (4.8-10.8)
[2024-10-28 15:56] LABS: ALT (SGPT) 14 U/L (0-35); AST (SGOT) 20 U/L (14-36); Albumin 4.6 g/dl (3.5-5.0); Alkaline Phosphatase 77 U/L (38-126); Blood Urea Nitrogen 70 mg/dl (7-17); Calcium 10.2 mg/dl (8.4-10.2); Carbon Dioxide 5 mmol/L (22-30); Chloride 109 mmol/L (98-107); Glucose 127 mg/dl (70-99); Potassium 4.3 mmol/L (3.5-5.1); Sodium 138 mmol/L (135-145); Total Bilirubin 0.6 mg/dl (0.2-1.3); Total Protein 7.3 g/dl (6.3-8.2); eGFR 7.74
[2024-10-28 19:13] VITALS: BP 98/66
--- NOTE | 2024-10-28 19:53 | ED.GENMED ---
History of Present Illness
General
Chief Complaint: Abnormal Lab Value
Source: patient
Exam Limitations: none
Time Seen by Provider: 10/28/24 19:26
Nursing documentation reviewed up to this point in time: agreed with
History of Present Illness
History of Present Illness:
64-year-old female with a history of type 2 diabetes, hypertension, hyperlipidemia
Was on metformin and taking daily Advil PM
Presents for known elevation of her creatinine over the last couple weeks. Patient had routine outpatient labs about 1 week ago and was called last week 4 days ago saying that her creatinine was 3 and that she needed to stop her metformin and her
Advil PM. Patient followed up with her primary care doctor today and they sent outpatient labs which showed her creatinine was 6.2. Patient has felt overall generally weak just fatigued when she does any small activity. She feels like she is
voiding and emptying her bladder. She does get waves of abdominal pain at times that causes her almost to vomit and then it passes. Its up in the upper up abdomen region. She has not had any back pain with this. She has had kidney stones before
but this doesn't feel like one
pt has not had any cp, sob, confusion, syncope, diarrhea, dec po intake
pt had RANDOLPH after carotid endarterectomy surgery but it resolved
Past History
Past History
ED Past Medical History: Hypercholesterolemia and NIDDM
ED Past Surgical History: Other
Social History
Tobacco: Non-smoker
Alcohol: Other
Drug: None
Personal:
Living: with family
Employment: Other
Family History
Family History: Other
Review of Systems
Review of Systems
Allergies reviewed?: Yes
All Other Systems: Not applicable
Phy Exam
Physical Exam
Physical Exam:
GENERAL: Alert , in no apparent distress, slightly pale
EYE: pupils equal and reactive
NECK: Supple
ENT: o/p clr, mmm.
CARDIAC: Regular rate and rhythm .
LUNGS: Clear breath sounds bilaterally, no acute respiratory distress, no wheezes/rales/rhonchi
ABDOMEN: Soft, palpable bladder/firm;, no r/g, no cvat, normal bowel sounds
NEUROLOGICAL: Alert and oriented, no focal neuro deficits
SKIN: Warm and dry, skin intact.
MUSCULOSKELETAL: No edema, well perfused. neg henrry's sign
PSYCH: Normal and appropriate interaction.
Course
Orders/Labs/Results
Orders:
Orders
10/28/24 Dinner
1800 calorie (15 carb) Diabetic
At Your Request: Full Participation
Does patient need a safe tray?: No
10/28/24 15:18
Complete Blood Count/With Diff Urgent
Comprehensive Metabolic Panel Urgent
10/28/24 19:34
IV Insert/Care/Rem.- Treatment PRN
10/28/24 19:49
CT Abd/pel Without Iv Or Oral Urgent
Comment:
Reason For Exam: acute renal failure, waves abd pain, h/o stones
Bladder Scan- Treatment ONCE
10/28/24 19:51
Lactated Ringers [Lr] 1,000 ml IV BOLUS
Sodium Bicarbonate 50 meq IV NOW STA
10/28/24 20:08
Rodriguez Placement- Treatment ONCE
Reason for insertion: Acute Retention
10/28/24 20:32
Urinalysis Reflex To Culture Urgent
Date Specimen was Collected: 10/28/24
Time Specimen was Collected: 20:12
Urine Microscopic Reflex Cult Urgent
Venous Blood Gas Urgent
%Oxygen/Room Air: 100
Urine Culture Urgent
JANET Source: U
Specimen Description:
Date Specimen was Collected: 10/28/24
Time Specimen was Collected: 20:12
10/28/24 21:30
Sterile Water For Inj [Sterile Water For Injection 1000 ml] 1,000 ml Sodium Bicarbonate 150 meq IV 125 mls/hr
10/28/24 21:40
Admit/Transfer Patient As Directed
Co-Sign Provider:
Level of Care: Inpatient admission
Assign to:: Medical/Surgical
Physician / Group: Belen
Diagnosis: RANDOLPH
Reason for Hospitalization: RANDOLPH
Expected length of stay greater than two midnights?: Yes
ELOS- Estimated Length of Stay in days: 2
I certify the patient meets the requirements for IP care: Yes
PRN Pain Medication Management As Directed
May give lesser potent ordered pain med per pt: Yes
preference::
Protocol:: Medication orders for pain may be administered in a
manner that supports deferring to patient preference
when the pt is:
- Requesting an ordered lesser potent pain medication.
Least to most potent pain medications are defined
as: acetaminophen < NSAID < tramadol < opioids
(morphine, oxycodone, hydromorphone).
- Requesting a lesser dose of the same medication IF
ORDERED.
- Requesting a less intrusive route of administration
if both routes are prescribed by the provider (PO <
IV).
10/28/24 21:42
Code Status As Directed
Resuscitation Status: Full Code
10/28/24 22:00
Flush (0.9% Sodium Chloride) [Flush (Nss)] See Dose Instructions IV PER PROTOCOL
10/28/24 23:00
Acetaminophen [Tylenol] 650 mg PO Q4HPRN PRN
Bisacodyl [Dulcolax] 10 mg RECTAL [id number] PRN
Docusate W/Senna [Senokot-S] 1 tablet PO BIDPRN PRN
Ondansetron Injectable [Zofran] 4 mg IV Q6HPRN PRN
Polyethylene Glycol Powder [Miralax] 17 grams PO DAILYPRN PRN
Sodium Bicarbonate 650 mg PO TID
Tramadol HCl [Ultram] 50 mg PO [id number] PRN
10/28/24 23:00
NEPHROLOGY CONSULT Routine
Consulting Provider: Keagan Watkins V.
Was physician already notified: Yes
UROLOGY CONSULT Routine
Consulting Provider: Reece Simon
Was physician already notified: Yes
Comment: urinary retention
Urine Protein/Creat Ratio (Random) [Protein/Creat Ratio (Random)] Routine
Date Specimen was Collected: 10/29/24
Time Specimen was Collected: 00:31
Urine Sodium Routine
Date Specimen was Collected: 10/29/24
Time Specimen was Collected: 00:31
Activity As Directed
Activity Level: With Assistance
Vital Signs As Directed
Frequency: Per unit guidelines
Pulse Ox/spot Check [RESP] Routine
Quantity: 1
DX Deep Vein Thrombosis Video Routine
10/29/24 06:00
Basic Metabolic Panel IN AM
Complete Blood Count/No Diff IN AM
ESR [Erythrocyte Sed Rate] IN AM
Intact PTH Includes Calcium IN AM
Magnesium IN AM
Phos [Phosphorus] IN AM
10/29/24 08:00
Aspirin 325 mg PO DAILY
Heparin 5,000 units SC Q12
10/29/24 18:00
Rosuvastatin Calcium [Crestor] 40 mg PO QPM
Abnormal Lab Results
10/28/24 10/28/24
15:18 20:32
WBC 11.5 H 10^3/uL
(4.8-10.8)
RBC 3.18 L 10^6/uL
(4.20-5.40)
Hgb 9.6 L g/dL
(12.0-16.0)
Hct 27.5 L %
(37.0-47.0)
RDW 15.0 H %
(11.5-14.5)
Plt Count 438 H 10^3/uL
(130-400)
Absolute Neuts (auto) 8.3 H 10^3/uL
(1.4-6.5)
VBG pH 6.98 L*
(7.32-7.43)
VBG HCO3 9.2 L mmol/L
(22-27)
Chloride 109 H mmol/L
(98-107)
Carbon Dioxide 5 L* mmol/L
(22-30)
BUN 70 H mg/dl
(7-17)
Creatinine 5.7 H* mg/dL
(0.6-1.0)
Glucose 127 H mg/dl
(70-99)
Ur Occult Blood Reflex 2+ A
(Negative)
Leukocyte Esterase Rfl 1+ A
(Negative)
Urine WBC (Reflex) 16-20 A /HPF
(0-5)
Urine Bacteria (Reflex) Few A
(Negative)
Urine Albumin (Reflex) 3+ A
(Neg - Trace)
10/28/24 15:18
10/28/24 15:18
Vital Signs
Initial and Last Documented VS:
Initial Vital Signs
Temp Pulse Resp BP Pulse Ox
36.6 C 89 16 128/107 96
10/28/24 15:10 10/28/24 15:10 10/28/24 15:10 10/28/24 15:10 10/28/24 15:10
Last Documented Vital Signs
Temp Pulse Resp BP Pulse Ox
36.6 C 96 18 144/78 93
10/28/24 23:06 10/28/24 23:06 10/28/24 23:06 10/28/24 23:06 10/28/24 23:06
MDM/Problems Addressed
Differential Diagnosis Includes:
ARF, obstructive uropathy, uti
MDM/Problems Addressed:
64 y/o F
here with rising creatinine
in setting of metformin and daily nsaid use
up to 6 outpatient but 5.7 here
k normal
pt is mildly weak, fatigued
she had palpable bladder but had no feeling of urgency or retention
dneies dysuria
no back pain or leg weakness to suggest cord compression
mildly hypotensive 90s/50s
acidemic with bicarb <5
d/w ed attending
LR and bicarb
PVR was 700 ml, rodriguez put out 1300ml
admit
*Critical Care Note
Total Time (30-74mins, 75-104mins- exclusive of procedures): Not Applicable
ED Attending Note
-
Portions of this chart may have been created with voice recognition software.� Occasional wrong word or��sound alike� substitutions may have occurred due to the inherent limitations of voice recognition software.
Discharge Plan
Departure
Patient Disposition: Admit
Date of Disposition: 10/28/24
Time of Disposition: 20:16
Admit to: IMU
Presentation/result/management discussed w/ accepting MD/DO: Hospitalist
Condition: Fair
Covid-19: Not Applicable
Discharge Problem:
Acute renal failure, Acute urinary retention
Interventions
Interventions:
*Risk Screen - Suicide Last Done: 10/28/24 15:13
*General Assessment Last Done: 10/28/24 19:18
*Neglect/Abuse Screening Last Done: 10/28/24 15:13
*ED- Fall Risk Assessment Last Done: 10/28/24 19:18
*ED COVID-19 Vaccine History Last Done: 10/28/24 23:18
*Nursing Disposition Last Done: 10/28/24 22:33
Discharge Date and Time
Discharge Date/Time: 10/28/24 22:46
[2024-10-28 20:23] VITALS: BP 106/77
[2024-10-28] MEDS: SODIUM BICARBONATE 50 MEQ IV (20:26)
[2024-10-28] MEDS: LR 1000 IV (20:26)
[2024-10-28 20:40] LABS: Venous Blood Gas B.E. -21.3 mmol/L (-4 to +4); Venous Blood Gas HCO3 9.2 mmol/L (22-27); Venous Blood Gas O2 Sat % 76.8 %; Venous Blood Gas pCO2 39 mmHg (35-48); Venous Blood Gas pO2 48 mmHg (30-50)
[2024-10-28 20:41] LABS: Urine Albumin 3+ (Neg - Trace); Urine Bilirubin Negative (Negative); Urine Character Clear (Clear); Urine Color Yellow; Urine Glucose Negative (Negative); Urine Ketone Negative (Negative); Urine Leukocyte 1+ (Negative); Urine Nitrite Negative (Negative); Urine Occult Blood 2+ (Negative); Urine Specific Gravity 1.015 (<1.030); Urine Urobilinogen Negative (Neg - 1+)
[2024-10-28 20:44] LABS: Venous Blood Gas pH 6.98 (7.32-7.43)
[2024-10-28 21:00] LABS: Urine Granular Cast >15 /LPF (0); Urine Squamous Cell 16-20 /LPF (Few)
[2024-10-28 21:03] LABS: Urine Amorphous Seen; Urine Bacteria Few (Negative); Urine White Cell 16-20 /HPF (0-5)
[2024-10-28 21:04] LABS: Urine Red Blood Cell 0-2 /HPF (0-2)
--- NOTE | 2024-10-28 21:25 | HPS.HSE ---
Family Physician
-
Family Physician: Monica Nguyen PA-C
Chief Complaint
-
Abnormal renal function
History of Present Illness
This is a 64-year-old female with past medical history significant for [id number] diabetes, hyperlipidemia, TIA, carotid stenosis status post right carotid endarterectomy in June coming into the emergency department for acute kidney
injury.
Patient reported that she had outpatient labs a week ago showing a creatinine of 3. At that time she states she had been on Advil up to 600 mg daily and she has been doing so for several years. Advil was discontinued. Metformin was also
discontinued at that time. He had repeat creatinine 1 week later was up to 6.0. She was sent to the emergency department for evaluation.
Patient denies any prior history of CKD or RANDOLPH. Her creatinine June was 0.9. After her surgery she apparently had a brief episode of urinary retention but was not seen by urology. Patient herself denies having any urinary symptoms. She denies
dysuria hematuria urinary frequency or incontinence. She denies any flank pain. She denies any history of kidney stones. Patient denies abdominal pain and nausea or vomiting. She denies increased abdominal distention. She denies any back pain
numbness tingling. She denies any significant constipation but states she has mild constipation. She has no prior history of membranous or degenerative neurological disease. She denies any back surgery.
While in the emergency department the patient was able to urinate by herself to give a urine sample which was clear. She then had a bladder scan which showed a 700 cc volume and the urinary catheter was placed with about 1.3 L urine dilution.
She was afebrile, blood pressure was 106/77, pulse was 97 and oxygen saturation was 100% on room air.
CBC was unremarkable. Electrolytes remained stable with a sodium of 138 potassium 4.3 and a chloride of 109. Unfortunately her bicarb was less than 5. BUN was 70 and creatinine was 5.7. Glucose was 77.
UA shows 2+ occult blood, negative for nitrites, 1+ leukocyte Estrace, RBCs and WBCs are pending.
CT scan of the abdomen pelvis is pending.
Medical History
Past Medical History
Past Medical History: Reports CVA (TIA) and Other
Additional Past Medical History:
Hypertension type 2 diabetes
enlarged throid glands
kidney infection
HLd
Past Surgical History: Reports Other
Additional Past Surgical History:
thyroid gland mass removed
hernia surgery
c section
Carotid endarterectomy
Social History
Tobacco: Non-smoker
Alcohol: None
Drug: None
Personal:
Living: With Family
Family History
Family History: Not pertinent
Allergies / Home Medications
Allergies reflects when Allergies were last updated in [facility].
Home Medications with original date entered in [facility]
Allergy/Medication List:
Allergies
Allergy/AdvReac Type Severity Reaction Status Date / Time
No Known Allergies Allergy Verified 06/20/24 12:17
Home Medications
aspirin 325 mg tablet 325 mg PO DAILY 06/20/24
atorvastatin 20 mg tablet 20 mg PO DAILY 06/20/24
dulaglutide 0.75 mg/0.5 mL subcutaneous pen injector (Trulicity) 0.75 mg SC QWEEK 06/20/24
ibuprofen-diphenhydramine citrate 200 mg-38 mg tablet (Advil PM) 2 cap PO HS PRN sleep 06/20/24
metformin 500 mg tablet 500 mg PO BID 06/20/24
vitamin D3-vitamin K2 1 tab PO DAILY 06/20/24
Review of Systems
-
History Source: Patient and Family
Constitutional: Reports No Symptoms
EENT: Reports No Symptoms
Respiratory: Reports No Symptoms
Cardiac: Reports No Symptoms
Abdomen/GI: Reports No Symptoms
: Reports No Symptoms
Musculoskeletal: Reports No Symptoms
Skin: Reports No Symptoms
Neurological: Reports No Symptoms
Endocrine: Reports No Symptoms
Hematologic/Lymphatic: Reports No Symptoms
Psych: Reports No Symptoms
Physical Exam
Vital Signs
Vital Signs
Temp Pulse Resp BP Pulse Ox
97.9 F 92 18 106/77 97
10/28/24 15:10 10/28/24 20:30 10/28/24 20:30 10/28/24 20:23 10/28/24 20:23
Physical Exam
General: Well Developed, Well Nourished, No Apparent Distress and Comfortable
HEENT: NormoCephalic, Anicteric, Moist mucous membranes and Atraumatic
Respiratory: Clear
Cardiac: S1/S2 and Regular Rhythm; No Murmur, Rub or Gallop
Breast: Deferred by me
GI: Soft, Non Tender, Non Distended and Normal Bowel Sounds
Rectal: Deferred by Provider
Genito-urinary: Clear Urine and Rodriguez
Musculoskeletal: No Clubbing, No Cyanosis and No Edema
Skin: Warm
Neuro: AO x 3 and Nonfocal/grossly intact
Hematologic/Lymphatic: No Lymphadenopathy
Psych: Calm
Laboratory Results
-
10/28/24 15:18
10/28/24 15:18
Laboratory Results
Total Bilirubin 0.6 mg/dl (0.2-1.3) 10/28/24 15:18
AST 20 U/L (14-36) 10/28/24 15:18
ALT 14 U/L (0-35) 10/28/24 15:18
Alkaline Phosphatase 77 U/L (38-126) 10/28/24 15:18
Data Reviewed
-
Medical Tests (Nuc Med, Echo, EKG etc): Image Personally Visualized and interpreted
Lab Data: Labs Reviewed by me
Old Records: Reviewed
Impression/Plan
-
IMPRESSION:
64 y.o with no prior CKD coming in with RANDOLPH and urinary retention.
PLAN:
RANDOLPH -Bl cr 0.9 now Cr 5.7, bicarb 5. K4.3. She is euvolemic and does not appear oliguric. Had 1.2 L urinary retention after rodriguez insertion. Suspect obstructive renal failure with possible ATN. She was taken advil up to 600/day for the last 2
years until 1 week ago when found to have cr of 3. That has been discontinued. Metformin held as well. Severe metabolic acidosis
- admit to med/surg
- volume ok, K ok. 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
- s/p rodriguez placement for decompression
- CT a/p non con pending
- strict i/os
- avoid nephrotoxins
- IV fluid resuscitation as below and monitor for post-obstructive diuresis
- nephrology consulaton
Metabolic acidosis - Mixed anion gap and non gap metabolic acidosis 2/2 renal failure and possibly metformin induced lactic acidosis
- metformin held
- bicarb gtt for now at 125 ml/hr
- oral bicarb supplementation as tolerated
Urinary retention - no obvious explanation. Unlikely uti but rest of u/a panel pending. No systemic infection. NIDDM x 2 years
- CT a/p pending
- rodriguez decompression
- urology consultation
DM II
- insulin sliding scale for now
DVT PPX - hep sq
Code status - full code
[2024-10-28] MEDS: SODIUM BICARBONATE 1150 MEQ IV (22:05)
[2024-10-28] MEDS: FLUSH (NSS) 1 FLUSH IV (22:06)
[2024-10-28 22:10] VITALS: BP 131/87
[2024-10-28 23:06] VITALS: BP 144/78
[2024-10-28 23:07] VITALS: BMI 26.1
[2024-10-28] MEDS: SODIUM BICARBONATE 650 MG PO (23:17)
--- NOTE | 2024-10-28 23:30 | PTCARENOTE ---
Received patient from ED last night (10/28)at approx 2300. Patient walked from stretcher to bed. AAA x3. Urinary Dennison in place. Light pink urine in Dennison. Oriented to room. Call gonsales in place.
[2024-10-29 01:02] LABS: Urine Sodium 61 mmol/L (30-90)
--- NOTE | 2024-10-29 01:07 | W.PN.UPDATE ---
Update Note
Progress Note Update
~ 1 am - Called to evaluate patient for red colored urine draining to rodriguez bag from newly placed catheter. RN stated patient noted to have pink tinged urine on admission to floor at 2300. RN noted around 1 am, that urine is now darker in color.
Patient examined, rodriguez draining red urine, no clots noted. Patient resting, no abdominal distention, tenderness noted. ASA placed on hold, Lovenox discontinued, orders SCD's for DVT prophylaxis. Order placed to hand irrigate for clots/no drainage.
CBC ordered w/am labs, monitor hemoglobin. Urology previously consulted.
[2024-10-29 01:13] LABS: Urine Protein 304 mg/dl
[2024-10-29 02:51] LABS: Protein/creatinine Ratio 6.7
[2024-10-29 03:37] LABS: Glucose - Point of Care 98 mg/dl (70-99)
[2024-10-29 06:14] VITALS: BP 131/73
--- NOTE | 2024-10-29 06:22 | PTCARENOTE ---
Patient's urine gradually turned to red in the Dennison bag and tubing. No visible blood around insertion site. She denies pain. FLASHER ADJUSTER notified via TT around 0100. FLASHER ADJUSTER placed order for Dennison irrigation PRN clots or decreased output. Urology consult in
place. ASA on hold, heparin injection dc'd.
Urine output had significantly slowed. Hand irrigated Dennison at approx 0330 with 30mls per order. Urine output of 200mls, dark red blood following irrigation.
Urine output at 0600 525, IV fluid intake 875. Irrigated Dennison with 30mls. Output of 100mls of punch colored urine. No clots visualized entire shift. Vitals obtained and WNL. Patient denies pain or abdominal pressure/discomfort. Updated FLASHER ADJUSTER via TT.
[2024-10-29 07:00] VITALS: BP 106/62
[2024-10-29 07:21] LABS: Glucose - Point of Care 145 mg/dl (70-99)
[2024-10-29] MEDS: SODIUM BICARBONATE 1150 MEQ IV ×2 (07:22→21:19)
[2024-10-29 07:27] LABS: Hematocrit 24.3 % (37.0-47.0); Hemoglobin 8.7 g/dL (12.0-16.0); Mean Corp Hgb Conc. 35.8 g/dL (33.0-37.0); Mean Corpuscular Hgb 29.6 pg (27.0-31.0); Mean Corpuscular Volume 82.7 fL (81.0-99.0); Mean Platelet Volume 10.2 fL (7.4-10.4); Platelet Count 353 10^3/uL (130-400); Red Blood Cell Count 2.94 10^6/uL (4.20-5.40); Red Cell Dist. Width 14.5 % (11.5-14.5); White Blood Cell Count 10.4 10^3/uL (4.8-10.8)
[2024-10-29 08:42] LABS: Erythrocyte Sed Rate 62 mm/hour (0-20)
[2024-10-29 08:49] LABS: Blood Urea Nitrogen 75 mg/dl (7-17); Calcium 9.3 mg/dl (8.4-10.2); Carbon Dioxide 11 mmol/L (22-30); Chloride 104 mmol/L (98-107); Estimated Creatinine Clearance 9 ml/min; Glucose 131 mg/dl (70-99); Magnesium 0.9 mg/dl (1.6-2.3); Phosphorus 6.1 mg/dl (2.5-4.5); Potassium 3.4 mmol/L (3.5-5.1); Sodium 138 mmol/L (135-145); eGFR 8.26
[2024-10-29 09:05] LABS: Glycohemoglobin (HgbA1c) 5.6 % (4.0-5.6)
--- NOTE | 2024-10-29 09:06 | W.PN.HOSP.TC ---
Addendum entered and electronically signed by Jamie Aldridge MD 10/29/24 12:16:
#Hx of mild hypercalcemia with parotid mass and primary hyperparathyroidism
previously recommended for FNA by ENT
Original Note:
Today's Communication/Plan
-
See PN
Assessment / Plan
Assessment / Plan
64yo F with PMHx of HLD, DM, carotid stenosis s/p L CEA on 06/20/24 came with worsening Cr around 3.0 found intially 2 weeks ago by her lead coater and worsened to around 5.0 on repeated blood test before admission. Patient was taking 3 Ibuprofen
PM every night to fall asleep for long time. Also found acute urinary retention in ED with 1L of PVR.
A/P:
#RANDOLPH 2/2 ATN
#Metabolic acidosis 2/2 above
Granular casts on UA
IVF with bicarb
Avoid NSAIDs, ABDULLAHI, ARB at this time
serial BMP
Nephrology consult
Patient without new rash, hemoptysis, headaches
#Hypomagnesemia
replete and follow
#Hematuria with anemia on admission
#Acute urinary retention
patienthad Booth before, possible acute on chronic retention
Hematuria improving, most likely 2/2 trauma
Anemia w/u
Urology consult
#Carotid stensosi s/p L CEA
cont ASA, statin
#DM type 2 with circulatory complications
DM diet, Insulin SS, accuchecks. Stop metformin
DVT ppx SCDs (2/2 hematuria)
FUll code
I have spent at least 59min reviewing chart, test results, communication with consultants and providing direct patient care
Anticipated Discharge: > 48 hours
Subjective/Interval History
-
Date of Service: October 29, 2024
Objective Data
-
Labs:
Laboratory Results
10/29/24
07:03
WBC 10.4
Hgb 8.7 L
Hct 24.3 L
Plt Count 353
Sodium 138
Potassium 3.4 L
Chloride 104
Carbon Dioxide 11 L*
BUN 75 H
Creatinine 5.4 H*
Glucose 131 H
Calcium 9.3
Vital Signs:
Vital Signs
Temp Pulse Resp BP Pulse Ox
97.8 F 88 18 106/62 99
10/29/24 07:00 10/29/24 07:00 10/29/24 07:00 10/29/24 07:00 10/29/24 07:00
I&O
10/28/24 10/29/24 10/30/24
06:59 06:59 06:59
Intake Total 905 / 905
Output Total 695 / 695
Balance 210 / 210
Review of Systems
-
History Source: Patient
All other systems: Reviewed and negative
Physical Exam
-
General: No Apparent Distress
HEENT: Normocephalic
Respiratory: Clear to Auscultation
GI: Soft, Nontender and Nondistended
Genito-urinary: No Costovertebral Tender
Musculoskeletal: No Clubbing, No Cyanosis and No Edema
Neuro: Awake, Alert, Oriented and AO x 3
Psych: Calm
[2024-10-29 09:35] LABS: Iron 82 ug/dl (37-170); LDH 172 U/L (120-246)
[2024-10-29] MEDS: NOVOLOG FLEXPEN-LOW RESISTANCE SC ×2 (09:41→17:40)
[2024-10-29] MEDS: ASPIRIN 325 MG PO (09:42)
[2024-10-29 09:45] LABS: Percent Saturation 31 % (20-50); Total Iron Binding Capacity 262 ug/dl (265-497)
[2024-10-29 09:49] LABS: Reticulocyte Count 2.6 % (0.4-2.8)
[2024-10-29] MEDS: KCL 20 MEQ PO (09:52)
[2024-10-29] MEDS: ROCEPHIN 1000 MG IV (10:22)
[2024-10-29] MEDS: SODIUM BICARBONATE 650 MG PO ×3 (10:24→21:20)
[2024-10-29] MEDS: STERILE WATER FOR INJECTION 10 ML IV (10:25)
[2024-10-29] MEDS: MAGNESIUM SULFATE 50 IV (10:25)
[2024-10-29 11:44] LABS: Glucose - Point of Care 195 mg/dl (70-99)
[2024-10-29 12:00] LABS: Intact PTH 130.5 pg/ml (13.6-85.8)
--- NOTE | 2024-10-29 12:44 | W.CON.NEPH ---
Consultation
-
Date/Time Consultation Requested: 10/29/2024 9 AM
Date/Time Consultation Performed: 10/29/2024 12 PM
Requesting Provider: Dr. Glover
Performing Provider: Dr. Fernandez
Reason for Consultation: RANDOLPH
Medical History
-
Chief Complaint: Abnormal labs
History of Present Illness:
This is a 64-year-old female who has worsening diabetes mellitus type 2 typically treated with metformin and Trulicity therapy with excellent A1c of 5.9 by her report. She also has hyperlipidemia controlled with statin therapy. She has no
hypertension. She does have restless leg syndrome as well as insomnia for which she takes Advil PM 2 or 3 tablets nightly. She has done this for several years. Recently she had developed some abdominal discomfort though not overt pain. She had
routine blood work performed with her primary which had shown a jump in creatinine of 0.9 up to 3.0. Her metformin was held as well as her Advil and those number was repeated in 10 days time. The repeat returned at 6.0 and she was sent to the
emergency room. In the ER creatinine was noted to be elevated 5.7 with multiple appetite abnormalities including low magnesium, low potassium and significant metabolic acidosis. She was noted to have high postvoid residual and a Dennison cath was
placed with over 1 L urine output. Overnight she developed gross hematuria. We are asked to assist with management of her renal issues.
Past Medical History
Diabetes mellitus type 2
Hyperlipidemia
Left carotid endarterectomy
parathyroidectomy for primary hyperparathyroidism
Nephrolithiasis calcium based
Social History
Tobacco: Non-Smoker
Alcohol: None
Family History
No CKD
Family History: Not Pertinent
Allergies / Home Medications
Allergy/AdvReac Type Severity Reaction Status Date / Time
No Known Allergies Allergy Verified 06/20/24 12:17
�Medication �Instructions �Recorded �Confirmed �Type
aspirin 325 mg tablet 325 mg PO DAILY Blood Clot 06/20/24 10/28/24 History
Prevention/Tx
dulaglutide 0.75 mg/0.5 mL 0.75 mg SC WE Diabetes 06/20/24 10/28/24 History
subcutaneous pen injector
(Trulicity)
ibuprofen-diphenhydramine citrate 2 cap PO HSPRN PRN sleep 06/20/24 10/28/24 History
200 mg-38 mg tablet (Advil PM)
metformin 500 mg tablet 1,000 mg PO BID Diabetes 06/20/24 10/28/24 History
rosuvastatin 40 mg tablet 40 mg PO QPM #30 tabs 06/24/24 10/28/24 Rx
Review of Systems
-
Abdominal discomfort only
All other systems: Negative unless noted
Physical Exam
Vital Signs
Vital Signs
Temp Pulse Resp BP Pulse Ox
97.8 F 88 18 106/62 99
10/29/24 07:00 10/29/24 07:00 10/29/24 07:00 10/29/24 07:00 10/29/24 08:58
Lab Results
WBC 10.4 10^3/uL (4.8-10.8) 10/29/24 07:03
RBC 2.94 10^6/uL (4.20-5.40) L 10/29/24 07:03
Hgb 8.7 g/dL (12.0-16.0) L 10/29/24 07:03
Hct 24.3 % (37.0-47.0) L 10/29/24 07:03
Plt Count 353 10^3/uL (130-400) 10/29/24 07:03
Sodium 138 mmol/L (135-145) 10/29/24 07:03
Potassium 3.4 mmol/L (3.5-5.1) L 10/29/24 07:03
Chloride 104 mmol/L (98-107) 10/29/24 07:03
Carbon Dioxide 11 mmol/L (22-30) L* 10/29/24 07:03
BUN 75 mg/dl (7-17) H 10/29/24 07:03
Creatinine 5.4 mg/dL (0.6-1.0) H* 10/29/24 07:03
eGFR 8.26 10/29/24 07:03
Glucose 131 mg/dl (70-99) H 10/29/24 07:03
Calcium 9.3 mg/dl (8.4-10.2) 10/29/24 07:03
Phosphorus 6.1 mg/dl (2.5-4.5) H 10/29/24 07:03
Albumin 4.6 g/dl (3.5-5.0) 10/28/24 15:18
Laboratory Tests
06/24/24 10/29/24
04:08 07:03
Carbon Dioxide 19 L
Creatinine 0.9
Calcium 10.3 H
Phosphorus 6.1 H
Magnesium 0.9 L*
PTH Intact 130.[address] abdomen pelvis without contrast 10/28/2024
IMPRESSION:
No acute pathology identified on this unenhanced scan.
Moderate fecal material throughout the colon.
Nonobstructing left renal stones.
Benign mildly complex left renal cyst.
Bilateral adrenal thickening suggesting benign hyperplasia.
Dennison catheter present in the bladder.
Physical Exam
Patient is awake alert oriented and in no distress. Mood and affect were pleasant, insight and judgment were good. Pupils are equal round and reactive to light, extraocular movements are intact, sclera were anicteric. Hearing was normal, ears and
nose are intact. Oropharynx was clear. Neck was supple with trachea midline and no thyromegaly. Heart was regular rate and rhythm without rubs. Lower extremities without edema. Lungs were clear to auscultation bilaterally and with normal
excursion. Abdomen was soft, nontender, with normal active bowel sounds, and no hepatosplenomegaly. Skin was without rash and with normal turgor.
Data Reviewed
-
CT Scan: Report Reviewed by me
Labs: Labs Reviewed by me
Old Records: Reviewed
Assessment/Plan
-
Assessment
RANDOLPH
Urinary retention
Gross hematuria
Hypomagnesemia
Hypokalemia
Metabolic acidosis
Diabetes mellitus type 2
Proteinuria nephrotic range
Plan
Aggressive magnesium repletion
Continue IV fluids, bicarbonate based
Follow BMP
Maintain Dennison
Hematuria likely traumatic
Serologic workup ordered given abnormal urinalysis and acute kidney injury
Cause of RANDOLPH likely due to obstruction, and creatinine should improve steadily.
[2024-10-29 13:26] LABS: Vitamin B12 348 pg/ml (239-931)
[2024-10-29] MEDS: NOVOLOG FLEXPEN-LOW RESISTANCE 1 UNITS SC (13:58)
[2024-10-29] MEDS: MAGNESIUM SULFATE 100 IV (13:59)
[2024-10-29 14:25] LABS: Anti Streptolysin Negative (Negative)
[2024-10-29 15:00] VITALS: BP 137/80
--- NOTE | 2024-10-29 16:11 | CM ---
family service caseworker reviewed patient's chart and met with patient and patient lives with spouse anju multilevel home with 3 steps to enter, patient is independent with adl's and ambulation, no dme ,home when stable no needs.
PCP: Brian Nguyen
Pharmacy: [facility] in [place]
Plan; Home when stable.
[2024-10-29 16:27] LABS: Glucose - Point of Care 148 mg/dl (70-99)
[2024-10-29] MEDS: CRESTOR 40 MG PO (17:42)
[2024-10-29 21:36] LABS: Glucose - Point of Care 208 mg/dl (70-99)
[2024-10-29 22:51] VITALS: BP 136/78
[2024-10-29 23:13] LABS: Complement C3 129 mg/dl (88-165)
[2024-10-30] MEDS: ZOFRAN 4 MG IV (03:53)
[2024-10-30] MEDS: FLUSH (NSS) 2 FLUSH IV (03:53)
[2024-10-30 05:38] LABS: Body Fluid for Eosinophils 2% Eosinophils seen
[2024-10-30 07:20] VITALS: BP 126/59
[2024-10-30 07:45] LABS: % Basophils 0.3 % (0-2); % Eosinophils 0.1 % (0-6); % Immature Granulocytes 0.3 % (0-0.5); % Lymphocytes 10.7 % (20.5-51.1); % Monocytes 3.6 % (1.7-9.3); Absolute Lymphocytes 0.8 10^3/uL (1.2-3.4); Absolute Monocytes 0.3 10^3/uL (0.1-0.6); Absolute Neutrophils 6.4 10^3/uL (1.4-6.5); Hematocrit 22.8 % (37.0-47.0); Hemoglobin 8.3 g/dL (12.0-16.0); Mean Corp Hgb Conc. 36.4 g/dL (33.0-37.0); Mean Corpuscular Hgb 29.2 pg (27.0-31.0); Mean Corpuscular Volume 80.3 fL (81.0-99.0); Mean Platelet Volume 10.4 fL (7.4-10.4); Nucleated Red Blood Cells % 0 %; Platelet Count 373 10^3/uL (130-400); Red Blood Cell Count 2.84 10^6/uL (4.20-5.40); Red Cell Dist. Width 14.4 % (11.5-14.5); White Blood Cell Count 7.5 10^3/uL (4.8-10.8)
[2024-10-30 08:11] LABS: Glucose - Point of Care 199 mg/dl (70-99)
[2024-10-30 08:16] LABS: Blood Urea Nitrogen 76 mg/dl (7-17); Carbon Dioxide 22 mmol/L (22-30); Chloride 96 mmol/L (98-107); Estimated Creatinine Clearance 10 ml/min; Glucose 172 mg/dl (70-99); Magnesium 2.4 mg/dl (1.6-2.3); Sodium 136 mmol/L (135-145); eGFR 9.52
[2024-10-30] MEDS: NOVOLOG FLEXPEN-LOW RESISTANCE 1 UNITS SC ×3 (09:03→17:53)
[2024-10-30] MEDS: ROCEPHIN 1000 MG IV (09:04)
[2024-10-30] MEDS: STERILE WATER FOR INJECTION 10 ML IV (09:04)
[2024-10-30] MEDS: SODIUM BICARBONATE 650 MG PO (09:05)
[2024-10-30] MEDS: KCL 270 MEQ IV (09:52)
[2024-10-30] MEDS: NSS 1000 IV ×2 (09:52→20:22)
[2024-10-30] MEDS: COMPAZINE 5 MG IV (09:53)
[2024-10-30] MEDS: KCL 40 MEQ PO (09:53)
--- NOTE | 2024-10-30 11:21 | CM ---
Chart reviewed and patient to return to home when stable, AD information provided to patient.
Plan; Home with spouse when stable.
[2024-10-30 11:45] LABS: Glucose - Point of Care 196 mg/dl (70-99)
--- NOTE | 2024-10-30 12:12 | W.PN.HOSP.TC ---
Today's Communication/Plan
-
cont to follow labs and cont hydration, switch to NS
PPI and GI consult
Replete potassium and cont Ceftriaxone
Assessment / Plan
Assessment / Plan
64yo F with PMHx of HLD, DM, carotid stenosis s/p L CEA on 06/20/24 came with worsening Cr around 3.0 found intially 2 weeks ago by her bioinformatics programmer and worsened to around 5.0 on repeated blood test before admission. Patient was taking 3 Ibuprofen
PM every night to fall asleep for long time. Also found acute urinary retention in ED with 1L of PVR.
A/P:
#RANDOLPH 2/2 ATN
#Metabolic acidosis 2/2 above
Granular casts on UA
IVF with bicarb
Avoid NSAIDs, ABDULLAHI, ARB at this time
serial BMP
Nephrology consult
Patient without new rash, hemoptysis, headaches
#Hypomagnesemia
replete and follow
#Hematuria with anemia on admission
#Acute urinary retention
patient had Dennison before, possible acute on chronic retention
Hematuria improving, most likely 2/2 trauma
Anemia w/u
Urology consult
#epigastric pain with recent anemia
no significant findings on CT
possible PUD
check stool for occult blood with anemia
PPI BID
GI consult
#L renal cyst
#Non-obstructing nephrolithiasis
#Benign adrenal hyperplasia
no follow up advised
#Carotid stenosis s/p L CEA
cont ASA, statin
#DM type 2 with circulatory complications
DM diet, Insulin SS, accuchecks. Stop metformin
DVT ppx SCDs (2/2 hematuria)
FUll code
I have spent at least 59min reviewing chart, test results, communication with consultants, family and providing direct patient care
Anticipated Discharge: > 48 hours
Subjective/Interval History
-
Date of Service: October 30, 2024
Objective Data
-
Labs:
Laboratory Results
10/30/24
07:27
WBC 7.5
Hgb 8.3 L
Hct 22.8 L
Plt Count 373
Sodium 136
Potassium 3.0 L
Chloride 96 L
Carbon Dioxide 22
BUN 76 H
Creatinine 4.8 H*
Glucose 172 H
Calcium 9.0
Vital Signs:
Vital Signs
Temp Pulse Resp BP Pulse Ox
97.5 F 69 18 126/59 97
10/30/24 07:20 10/30/24 07:20 10/30/24 07:20 10/30/24 07:20 10/30/24 07:20
I&O
10/29/24 10/30/24 10/31/24
06:59 06:59 06:59
Intake Total 905 / 905 1500 / 1500
Output Total 695 / 695 1850 / 1850
Balance 210 / 210 -350 / -350
Review of Systems
-
History Source: Patient
All other systems: Reviewed and negative
Abdomen/GI: Reports Abdominal Pain (epigastric)
Physical Exam
-
General: No Apparent Distress
HEENT: Normocephalic
Respiratory: Clear to Auscultation
Cardiac: Regular Rhythm
GI: Soft and Tender (epigastric)
Musculoskeletal: No Clubbing, No Cyanosis and No Edema
Neuro: Awake, Alert, Oriented and AO x 3
Psych: Calm
--- NOTE | 2024-10-30 12:22 | W.PN.NEPH.PH ---
Today's Communication / Plan
-
IV fluids
Assessment/Plan
-
Assessment
RANDOLPH
Urinary retention
Gross hematuria
Hypomagnesemia
Hypokalemia
Metabolic acidosis
Diabetes mellitus type 2
Proteinuria nephrotic range
Plan
Continue IV fluids NS
Follow BMP
Maintain Dennison today
Tamsulosin
Hematuria likely traumatic
Serologic workup ordered given abnormal urinalysis and acute kidney injury
Replete potassium
Repeat urinalysis tomorrow
-
-
Date of Service: October 30, 2024
CC / HPI / ROS
-
Chief Complaint:
RANDOLPH
History of Present Illness:
RANDOLPH/Cr better at 4.8
K low 3.0
BP stable
Nonoliguric
Review of Systems:
No chest pain or shortness of breath
Labs
-
Labs:
WBC 7.5 10^3/uL (4.8-10.8) 10/30/24 07:27
RBC 2.84 10^6/uL (4.20-5.40) L 10/30/24 07:27
Hgb 8.3 g/dL (12.0-16.0) L 10/30/24 07:27
Hct 22.8 % (37.0-47.0) L 10/30/24 07:27
Plt Count 373 10^3/uL (130-400) 10/30/24 07:27
Sodium 136 mmol/L (135-145) 10/30/24 07:27
Potassium 3.0 mmol/L (3.5-5.1) L 10/30/24 07:27
Chloride 96 mmol/L (98-107) L 10/30/24 07:27
Carbon Dioxide 22 mmol/L (22-30) 10/30/24 07:27
BUN 76 mg/dl (7-17) H 10/30/24 07:27
Creatinine 4.8 mg/dL (0.6-1.0) H* 10/30/24 07:27
eGFR 9.52 10/30/24 07:27
Glucose 172 mg/dl (70-99) H 10/30/24 07:27
Calcium 9.0 mg/dl (8.4-10.2) 10/30/24 07:27
Phosphorus 6.1 mg/dl (2.5-4.5) H 10/29/24 07:03
Albumin 4.6 g/dl (3.5-5.0) 10/28/24 15:18
Physical Exam
-
Vital Signs:
Vital Signs
Temp Pulse Resp BP Pulse Ox
97.5 F 69 18 126/59 97
10/30/24 07:20 10/30/24 07:20 10/30/24 07:20 10/30/24 07:20 10/30/24 07:20
Cardiovascular:: Regular rate and rhythm
Respiratory:: Bilateral: Coarse
Lung Excursion:: Normal
Abdomen:: Nontender and Soft
Bowel Sounds:: Normal
Extremity Edema:: None: Bilateral:
[2024-10-30 12:42] LABS: Lipase 565 U/L (23-300)
[2024-10-30] MEDS: NSS (PRESERVATIVE FREE) 10 ML IV ×2 (12:50→20:23)
[2024-10-30] MEDS: PROTONIX IV 40 MG IV ×2 (12:51→20:23)
--- NOTE | 2024-10-30 12:54 | W.PN.UPDATE ---
Update Note
Progress Note Update
CT scan showed unremarkable pancreas, but lipase elevated with episodes of epigastric pain. Further mgmt by GI. already on IVF
--- NOTE | 2024-10-30 13:29 | CON.GI ---
Addendum entered and electronically signed by Jasiel Hall MD 10/30/24 15:28:
I saw and examined the patient.
The MANAGER TESTING or PA's note was reviewed and I agree with the note.
Comment: 64yo female presents with ARF Cr up to 5.7, severe acidosis CO2 of 5, urinary retention, hematuria (likely traumatic). RANDOLPH felt to be due to obstruction and Cr should improve. She has nausea. Denies abd pain. She has been taking
ibuprofen 600mg hs for years. Also on Trulicity and metformin for DM. No prior EGD/colonoscopy. CT without contrast shows no acute pathology. Denies BPR or melena
REC:
Nausea likely related to RANDOLPH and hopefully should improve with resolution.
Avoid NSAIDs
PPI
Lipase 565 could be due to RANDOLPH
If nausea persists as RANDOLPH resolves, could consider EGD or US for further evaluation
Original Note:
Consultation
-
Date/Time Consultation Requested: 10/30/24 1215
Date/Time Consultation Performed: 10/30/24 1330
Requesting Provider: Jamie Aldridge MD
Performing Provider: JAYME Mota, Jasiel Hall MD
Reason for Consultation: nausea
Medical History
Chief Complaint / HPI
Chief Complaint: nausea
History of Present Illness:
Pt is a 64yo presents with NIDDM, hyperlipidemia, TIA, carotid stenosis with right CEA with noted RANDOLPH on admission with creat up to 5.7 and metabolic acidosis. In review with patient she admits to taking daily NSAID with Ibuprofen 2-3 night for
sleep for several years. She was taking ASA daily along with Trulicity and metformin for her DM. 1 week prior to admission she was noted with creat 3 and stopped Metformin and NSAIDs. On admission she was also noted with urinary retention, hbg
down to 8.3, lipase 565, K down to 3, mag 2.4. Asked to see for complaints of nausea without vomiting. Pt states no specific pattern for nausea with food or timing in day. Minimal improvement with antiemetics. She admits to wt loss 65 lbs
over 2 years. She denies abdominal pain, diarrhea, constipation, or rectal bleeding. She denies hx EGD or colonoscopy in past. CT on admission with moderate stool in colon, non obs renal stone, renal cyst, adrenal hyperplasia and normal liver,
spleen, GB and pancreas on unenhanced CT.
Past Medical History
Past Medical History: CVA (TIA), HTN, Hypercholesterolemia, NIDDM and Other (enlarged thyroid, restless leg syndrome)
Past Surgical History: and Other (thryoid mass removal, hernia surgery, CEA)
Social History
Tobacco: Non-Smoker
Alcohol: None
Drug: None
Personal:
Living: With Family
Employment: Retired
Family History
Family History: Other (no family hx colon CA or GI problems)
Allergies / Home Medications
Allergy/AdvReac Type Severity Reaction Status Date / Time
No Known Allergies Allergy Verified 06/20/24 12:17
�Medication �Instructions �Recorded
aspirin 325 mg tablet 325 mg PO DAILY Blood Clot 06/20/24
Prevention/Tx
dulaglutide 0.75 mg/0.5 mL 0.75 mg SC WE Diabetes 06/20/24
subcutaneous pen injector
(Trulicity)
ibuprofen-diphenhydramine citrate 2 cap PO HSPRN PRN sleep 06/20/24
200 mg-38 mg tablet (Advil PM)
metformin 500 mg tablet 1,000 mg PO BID Diabetes 06/20/24
rosuvastatin 40 mg tablet 40 mg PO QPM #30 tabs 06/24/24
Review of Systems
-
History Source: Patient
Constitutional: Reports Weight Loss and Fatigue
EENT: Reports No Symptoms
Respiratory: Reports No Symptoms
Cardiac: Reports No Symptoms
Abdomen/GI: Reports Nausea
: Reports Difficulty Voiding
Musculoskeletal: Reports Other (restless leg syndrome )
Skin: Reports No Symptoms
Neurological: Reports Weakness
Endocrine: Reports No Symptoms
Hematologic/Lymphatic: Reports No Symptoms
Vital Signs
Temp Pulse Resp BP Pulse Ox
97.5 F 69 18 126/59 97
10/30/24 07:20 10/30/24 07:20 10/30/24 07:20 10/30/24 07:20 10/30/24 07:20
Physical Exam
Exam
General: Well Developed and Well Nourished
HEENT: Normocephalic and Anicteric
Respiratory: Clear
Cardiac: Regular Rhythm
GI: Soft, Non Tender and Non Distended
Musculoskeletal: No Clubbing and No Cyanosis
Skin: Warm and Dry
Neuro: Awake, Alert and AO x 3
Psych: Calm
Results
WBC 7.5 10^3/uL (4.8-10.8) 10/30/24 07:27
Hgb 8.3 g/dL (12.0-16.0) L 10/30/24 07:27
Hct 22.8 % (37.0-47.0) L 10/30/24 07:27
MCV 80.3 fL (81.0-99.0) L 10/30/24 07:27
Plt Count 373 10^3/uL (130-400) 10/30/24 07:27
Absolute Neuts (auto) 6.4 10^3/uL (1.4-6.5) 10/30/24 07:27
Sodium 136 mmol/L (135-145) 10/30/24 07:27
Potassium 3.0 mmol/L (3.5-5.1) L 10/30/24 07:27
Chloride 96 mmol/L (98-107) L 10/30/24 07:27
Carbon Dioxide 22 mmol/L (22-30) 10/30/24 07:27
BUN 76 mg/dl (7-17) H 10/30/24 07:27
Creatinine 4.8 mg/dL (0.6-1.0) H* 10/30/24 07:27
Calcium 9.0 mg/dl (8.4-10.2) 10/30/24 07:27
Total Bilirubin 0.6 mg/dl (0.2-1.3) 10/28/24 15:18
AST 20 U/L (14-36) 10/28/24 15:18
ALT 14 U/L (0-35) 10/28/24 15:18
Alkaline Phosphatase 77 U/L (38-126) 10/28/24 15:18
Lipase 565 U/L (23-300) H 10/30/24 07:27
Diagnostic Image Results:
10/28/24 CT Abd/pel Without Iv Or Oral
No acute pathology identified on this unenhanced scan.
Moderate fecal material throughout the colon.
Nonobstructing left renal stones.
Benign mildly complex left renal cyst.
Bilateral adrenal thickening suggesting benign hyperplasia.
Dennison catheter present in the bladder.
Prior GI Procedures:
EGD: none
Colonoscopy: none
Assessment / Plan
-
Pt is a 64yo presents with NIDDM, hyperlipidemia, TIA, carotid stenosis with right CEA with noted RANDOLPH on admission with creat up to 5.7 and metabolic acidosis. In review with patient she admits to taking daily NSAID with Ibuprofen 2-3 night for
sleep for several years. She was taking ASA daily along with Trulicity and metformin for her DM. 1 week prior to admission she was noted with creat 3 and stopped Metformin and NSAIDs. On admission she was also noted with urinary retention, hbg
down to 8.3, lipase 565, K down to 3, mag 2.4. Asked to see for complaints of nausea without vomiting. Pt states no specific pattern for nausea with food or timing in day. Minimal improvement with antiemetics. She admits to wt loss 65 lbs
over 2 years. She denies abdominal pain, diarrhea, constipation, or rectal bleeding. She denies hx EGD or colonoscopy in past. CT on admission with moderate stool in colon, non obs renal stone, renal cyst,adrenal hyperplasia and normal liver,
spleen, GB and pancreas on unenhanced CT.
-nausea
-anemia
-mild lipase elevation
-RANDOLPH
-metabolic acidosis - improving
-hypokalemia
-hypomagnesemia
-increased NSAID use prior to admission
other med problems:
-NIDDM
-renal cyst
-hyperlipidemia
-TIA
-carotid stenosis with prior CEA
PLAN:
etiology of nausea related to RANDOLPH, underlying PUD with anemia and NSAID use, electrolyte imbalance, less likely gastroparesis with stable hbg A1C vs other
cont treatment for RANDOLPH and monitor symptoms
if not improving consider EGD
trend hbg
lipase elevation can be seen with see with RANDOLPH but would consider contrast study when able if symptoms persist as noted pancreas eval with non contrast study on admission
cont ADA diet
cont antiemetics
keep electrolytes corrected
-
-
Thank you for consultation and allowing me to participate in the patient's care. Please call the government contracts manager GI physician during the after hours with any questions or concerns.
[2024-10-30 14:02] LABS: Urine Albumin 2+ (Neg - Trace); Urine Bilirubin Negative (Negative); Urine Character Clear (Clear); Urine Glucose 2+ (Negative); Urine Ketone 3+ (Negative); Urine Leukocyte 2+ (Negative); Urine Nitrite Negative (Negative); Urine Occult Blood 4+ (Negative); Urine Urobilinogen Negative (Neg - 1+)
[2024-10-30 14:05] LABS: Urine Color Straw
[2024-10-30 14:18] LABS: Urine Bacteria Few (Negative); Urine Red Blood Cell 30-40 /HPF (0-2); Urine Squamous Cell 0-2 /LPF (Few)
[2024-10-30 15:27] VITALS: BP 159/81
[2024-10-30 16:47] LABS: Glucose - Point of Care 190 mg/dl (70-99)
[2024-10-30] MEDS: CRESTOR 40 MG PO (17:53)
[2024-10-30 21:30] LABS: Glucose - Point of Care 173 mg/dl (70-99)
[2024-10-30 22:37] VITALS: BP 143/66
[2024-10-31] MEDS: NSS 1000 IV ×2 (05:57→18:29)
[2024-10-31 07:00] VITALS: BP 149/58
[2024-10-31 07:59] LABS: % Basophils 0.3 % (0-2); % Eosinophils 0.3 % (0-6); % Immature Granulocytes 0.3 % (0-0.5); % Lymphocytes 14.5 % (20.5-51.1); % Monocytes 8.2 % (1.7-9.3); % Neutrophils 76.4 % (42.2-75.2); Absolute Lymphocytes 1.1 10^3/uL (1.2-3.4); Absolute Monocytes 0.6 10^3/uL (0.1-0.6); Hematocrit 22.4 % (37.0-47.0); Hemoglobin 8.2 g/dL (12.0-16.0); Mean Corp Hgb Conc. 36.6 g/dL (33.0-37.0); Mean Corpuscular Volume 82.1 fL (81.0-99.0); Mean Platelet Volume 10.6 fL (7.4-10.4); Nucleated Red Blood Cells % 0 %; Platelet Count 385 10^3/uL (130-400); Red Blood Cell Count 2.73 10^6/uL (4.20-5.40); Red Cell Dist. Width 14.3 % (11.5-14.5); White Blood Cell Count 7.8 10^3/uL (4.8-10.8)
[2024-10-31 08:17] LABS: Glucose - Point of Care 156 mg/dl (70-99)
[2024-10-31 08:24] LABS: ALT (SGPT) 11 U/L (0-35); AST (SGOT) 21 U/L (14-36); Alkaline Phosphatase 73 U/L (38-126); Blood Urea Nitrogen 60 mg/dl (7-17); Calcium 8.7 mg/dl (8.4-10.2); Carbon Dioxide 20 mmol/L (22-30); Chloride 102 mmol/L (98-107); Estimated Creatinine Clearance 12 ml/min; Glucose 153 mg/dl (70-99); Magnesium 1.7 mg/dl (1.6-2.3); Phosphorus 4.9 mg/dl (2.5-4.5); Potassium 3.2 mmol/L (3.5-5.1); Sodium 138 mmol/L (135-145); Total Bilirubin 0.5 mg/dl (0.2-1.3); Total Protein 6.1 g/dl (6.3-8.2); eGFR 12.21
[2024-10-31] MEDS: ROCEPHIN 1000 MG IV (09:27)
[2024-10-31] MEDS: NSS (PRESERVATIVE FREE) 10 ML IV ×2 (09:28→20:44)
[2024-10-31] MEDS: STERILE WATER FOR INJECTION 10 ML IV (09:28)
[2024-10-31] MEDS: FLOMAX 0.4 MG PO (09:28)
[2024-10-31] MEDS: PROTONIX IV 40 MG IV ×2 (09:28→20:44)
[2024-10-31] MEDS: KCL 40 MEQ PO (09:29)
[2024-10-31] MEDS: NOVOLOG FLEXPEN-LOW RESISTANCE 1 UNITS SC ×3 (09:29→17:30)
--- NOTE | 2024-10-31 11:41 | CM ---
Chart reviewed and home no needs when stable.
Plan; Home no needs.
--- NOTE | 2024-10-31 12:33 | W.PN.HOSP.TC ---
Today's Communication/Plan
-
cont Abx
repleted potassium, magnesium
Assessment / Plan
Assessment / Plan
64yo F with PMHx of HLD, DM, carotid stenosis s/p L CEA on 06/20/24 came with worsening Cr around 3.0 found intially 2 weeks ago by her product development intern and worsened to around 5.0 on repeated blood test before admission. Patient was taking 3 Ibuprofen
PM every night to fall asleep for long time. Also found acute urinary retention in ED with 1L of PVR.
Eventual accidental findings of elevated lipase and possible PUD/gastritis with epigastric pain improved on PPI
A/P:
#RANDOLPH 2/2 ATN
#Metabolic acidosis 2/2 above
Granular casts on UA
IVF with bicarb
Avoid NSAIDs, ABDULLAHI, ARB at this time
serial BMP
Nephrology consult: autoimmune workup, SPAP, UPAP sent
Patient without new rash, hemoptysis, headaches
#Hypomagnesemia
replete and follow
#Hematuria with anemia on admission, anemia of chronic disease
#Acute urinary retention
patient had Dennison before, possible acute on chronic retention
Hematuria improving, most likely 2/2 trauma
Urology consult
Ucx ntd - Abx stopped
#epigastric pain with recent anemia
#Elevated lipase
no significant findings on CT
possible PUD
check stool for occult blood with anemia
PPI BID
GI consult: recommended CT with contrast when possible, currently high risk with RANDOLPH and not much benefit since pain subsided on PPI. Might need eventual EUS
#L renal cyst
#Non-obstructing nephrolithiasis
#Benign adrenal hyperplasia
no follow up advised
#Carotid stenosis s/p L CEA
cont ASA, statin
#DM type 2 with circulatory complications
DM diet, Insulin SS, accuchecks. Stop metformin
DVT ppx SCDs (2/2 hematuria)
FUll code
I have spent at least 59min reviewing chart, test results, communication with consultants, family and providing direct patient care
Anticipated Discharge: > 48 hours
Subjective/Interval History
-
Date of Service: October 31, 2024
Objective Data
-
Labs:
Laboratory Results
10/31/24
07:11
WBC 7.8
Hgb 8.2 L
Hct 22.4 L
Plt Count 385
Sodium 138
Potassium 3.2 L
Chloride 102
Carbon Dioxide 20 L
BUN 60 H
Creatinine 3.9 H
Glucose 153 H
Calcium 8.7
Total Bilirubin 0.5
AST 21
ALT 11
Alkaline Phosphatase 73
Vital Signs:
Vital Signs
Temp Pulse Resp BP Pulse Ox
98.2 F 61 17 149/58 97
10/31/24 07:00 10/31/24 07:00 10/31/24 07:00 10/31/24 07:00 10/31/24 07:00
I&O
10/30/24 10/31/24 11/01/24
06:59 06:59 06:59
Intake Total 1500 / 1500 960 / 960
Output Total 1850 / 1850 3100 / 3100
Balance -350 / -350 -2140 / -2140
Review of Systems
-
History Source: Patient
All other systems: Reviewed and negative
Physical Exam
-
General: No Apparent Distress and Comfortable
Respiratory: Clear to Auscultation
Cardiac: Regular Rhythm
GI: Soft, Nontender and Nondistended
Genito-urinary: Clear Urine and Dennison
Neuro: Awake, Alert, Oriented and AO x 3
Psych: Calm
--- NOTE | 2024-10-31 12:42 | W.PN.NEPH.PH ---
Today's Communication / Plan
-
Follow BMP
Replete potassium
Maintain Dennison
Assessment/Plan
-
Assessment
RANDOLPH
Urinary retention
Gross hematuria
Hypomagnesemia
Hypokalemia
Metabolic acidosis
Diabetes mellitus type 2
Proteinuria nephrotic range
Plan
Continue IV fluids NS
Creatinine down to 3.9 and grossly nonoliguric in excess of 3 L
Replete potassium
Follow BMP
Maintain Dennison today, urine retention could be due to underlying evolving diabetic autonomic neuropathy or antihistamine effect from nightly benadryl
Will likely require voiding trial once creatinine returns to baseline
Tamsulosin
Hematuria likely traumatic
Serologic workup ordered given abnormal urinalysis and acute kidney injury, however kidney function is improving rapidly which is likely more consistent with obstructive uropathy
However urine eosinophils were positive at 2% from 10/30/2024, so possible interstitial nephritis may be in play
Repeat urinalysis today
-
-
Date of Service: October 31, 2024
CC / HPI / ROS
-
Chief Complaint:
RANDOLPH
History of Present Illness:
RANDOLPH/Cr better at 3.9
K low 3.2
Anemia worsening
BP stable
Nonoliguric
Review of Systems:
No chest pain or shortness of breath
Grossly nonoliguric in excess of 3 L from Dennison catheter
Labs
-
Labs:
WBC 7.8 10^3/uL (4.8-10.8) 10/31/24 07:11
RBC 2.73 10^6/uL (4.20-5.40) L 10/31/24 07:11
Hgb 8.2 g/dL (12.0-16.0) L 10/31/24 07:11
Hct 22.4 % (37.0-47.0) L 10/31/24 07:11
Plt Count 385 10^3/uL (130-400) 10/31/24 07:11
Sodium 138 mmol/L (135-145) 10/31/24 07:11
Potassium 3.2 mmol/L (3.5-5.1) L 10/31/24 07:11
Chloride 102 mmol/L (98-107) 10/31/24 07:11
Carbon Dioxide 20 mmol/L (22-30) L 10/31/24 07:11
BUN 60 mg/dl (7-17) H 10/31/24 07:11
Creatinine 3.9 mg/dL (0.6-1.0) H 10/31/24 07:11
eGFR 12.21 10/31/24 07:11
Glucose 153 mg/dl (70-99) H 10/31/24 07:11
Calcium 8.7 mg/dl (8.4-10.2) 10/31/24 07:11
Phosphorus 4.9 mg/dl (2.5-4.5) H 10/31/24 07:11
Albumin 4.0 g/dl (3.5-5.0) 10/31/24 07:11
Physical Exam
-
Vital Signs:
Vital Signs
Temp Pulse Resp BP Pulse Ox
98.2 F 61 17 149/58 97
10/31/24 07:00 10/31/24 07:00 10/31/24 07:00 10/31/24 07:00 10/31/24 07:00
Cardiovascular:: Regular rate and rhythm
Respiratory:: Bilateral: Coarse
Lung Excursion:: Normal
Abdomen:: Nontender and Soft
Bowel Sounds:: Normal
Extremity Edema:: None: Bilateral:
Dennison Catheter: Yes
[2024-10-31 13:17] VITALS: BP 161/85
[2024-10-31 13:17] LABS: Glucose - Point of Care 167 mg/dl (70-99)
[2024-10-31] MEDS: MAGNESIUM SULFATE 50 IV (13:35)
[2024-10-31 15:28] VITALS: BP 134/80; PULSE 83; O2SAT 98
--- NOTE | 2024-10-31 15:35 | PTOTSP ---
pt currently requires supervision to no assistance to complete simple ADLs, functional transfers, ambulation. pt does not demonstrate any acute OT needs identified at this time, will sign off.
[2024-10-31 15:36] VITALS: BP 141/76
--- NOTE | 2024-10-31 16:00 | CON.MD ---
Consultation - Medical
-
see dictated note
pt with known fibroid- but no regular roller stainer f/u
no past urologic hx other than occ UTI
sent to ER 10/28 with elevated cr level (6) and some fatigue
found to be in ARF and anemic -CT scan showed scattered bilateral renal stones but no hydro- complex cyst
large fibroid displacing rodriguez- this was placed for residual of 700cc- pt had no sense that she was not emptying
urine initially bloody - has now cleared
hgb remains low
very slow decline of cr level- no sig post ob diuresis
was started on flomax
abd benign
pelvic- rodriguez in place- no obvious mass or prolapse
ucx negative
plan
unsure etiology of both retention (? obstruction from fibroid/neurogenic/med effect) and ARF (? obstructive- no hydro on ct and renal function has NOT improved rapidly with rodriguez)
hematuria likely secondary to bladder decompression
reviewed with pt/sister and nephrology
she is on flomax
continue rodriguez until renal function improves/declares- so may need outpt TOV
eventually will need outpt cysto and UDS- likely with dr pressley- uro/roller stainer
will follow
[2024-10-31 16:43] LABS: Glucose - Point of Care 173 mg/dl (70-99)
[2024-10-31] MEDS: CRESTOR 40 MG PO (18:30)
--- NOTE | 2024-10-31 20:05 | W.PN.GI.CBS2 ---
Today's Communication / Plan
-
GI s/o
Assessment / Plan
-
Pt is a 64yo presents with NIDDM, hyperlipidemia, TIA, carotid stenosis with right CEA with noted RANDOLPH on admission with creat up to 5.7 and metabolic acidosis. In review with patient she admits to taking daily NSAID with Ibuprofen 2-3 night for
sleep for several years. She was taking ASA daily along with Trulicity and metformin for her DM. 1 week prior to admission she was noted with creat 3 and stopped Metformin and NSAIDs. On admission she was also noted with urinary retention, hbg
down to 8.3, lipase 565, K down to 3, mag 2.4. Asked to see for complaints of nausea without vomiting. Pt states no specific pattern for nausea with food or timing in day. Minimal improvement with antiemetics. She admits to wt loss 65 lbs
over 2 years. She denies abdominal pain, diarrhea, constipation, or rectal bleeding. She denies hx EGD or colonoscopy in past. CT on admission with moderate stool in colon, non obs renal stone, renal cyst,adrenal hyperplasia and normal liver,
spleen, GB and pancreas on unenhanced CT.
Nausea improved with improvement of her RANDOLPH. Will s/o.
Total Time Spent with Patient (in minutes): 35
Subjective
Subjective
Date of Service: October 31, 2024
Nausea improved
Objective
Data Reviewed
Laboratory Data:
Laboratory Results
10/31/24 07:11
10/31/24 07:11
Laboratory Results
Phosphorus 4.9 mg/dl (2.5-4.5) H 10/31/24 07:11
Magnesium 1.7 mg/dl (1.6-2.3) 10/31/24 07:11
Total Bilirubin 0.5 mg/dl (0.2-1.3) 10/31/24 07:11
AST 21 U/L (14-36) 10/31/24 07:11
ALT 11 U/L (0-35) 10/31/24 07:11
Alkaline Phosphatase 73 U/L (38-126) 10/31/24 07:11
Lipase 565 U/L (23-300) H 10/30/24 07:27
Vital Signs and I&O:
Vital Signs
Temp Pulse Resp BP Pulse Ox
98.1 F 77 18 141/76 100
10/31/24 15:36 10/31/24 15:36 10/31/24 15:36 10/31/24 15:36 10/31/24 15:36
I&O
10/30/24 10/31/24 11/01/24
06:59 06:59 06:59
Intake Total 1500 / 1500 960 / 960 1909 / 1910
Output Total 1850 / 1850 3100 / 3100 1450 / 1450
Balance -350 / -350 -2140 / -2140 460 / 460
[2024-10-31 21:49] LABS: Glucose - Point of Care 185 mg/dl (70-99)
[2024-10-31 22:45] VITALS: BP 132/79
[2024-11-01] MEDS: NSS 1000 IV (04:11)
[2024-11-01 05:23] LABS: ANA, IgG Reflex to HEp-2 None Detected (None Detected)
[2024-11-01 07:00] VITALS: BP 132/87
[2024-11-01 07:19] LABS: Glucose - Point of Care 176 mg/dl (70-99)
[2024-11-01 07:25] LABS: % Basophils 0.7 % (0-2); % Eosinophils 1.6 % (0-6); % Immature Granulocytes 0.3 % (0-0.5); % Lymphocytes 30.4 % (20.5-51.1); % Monocytes 8.9 % (1.7-9.3); % Neutrophils 58.1 % (42.2-75.2); Absolute Basophils 0.1 10^3/uL (0-0.2); Absolute Eosinophils 0.1 10^3/uL (0-0.7); Absolute Lymphocytes 2.3 10^3/uL (1.2-3.4); Absolute Monocytes 0.7 10^3/uL (0.1-0.6); Absolute Neutrophils 4.3 10^3/uL (1.4-6.5); Hematocrit 21.2 % (37.0-47.0); Hemoglobin 7.7 g/dL (12.0-16.0); Mean Corp Hgb Conc. 36.3 g/dL (33.0-37.0); Mean Corpuscular Volume 82.5 fL (81.0-99.0); Mean Platelet Volume 10.8 fL (7.4-10.4); Nucleated Red Blood Cells % 0 %; Platelet Count 320 10^3/uL (130-400); Red Blood Cell Count 2.57 10^6/uL (4.20-5.40); Red Cell Dist. Width 14.4 % (11.5-14.5); White Blood Cell Count 7.4 10^3/uL (4.8-10.8)
--- NOTE | 2024-11-01 07:47 | W.PN.URO.CBU ---
Today's Communication / Plan
-
continue rodriguez
Assessment / Plan
-
urinary retention
ARF
rodriguez remains in place
reviewed with nephrology- they believe there may be a post obst element
will leave rodriguez in place and continue flomax
trend cr level
likely that pt will be discharged with cath- leg bag teaching and VN
will follow
Diagnosis
-
Date of Service: November 01, 2024
-
Patient Diagnosis:
urinary retention
ARF
Subjective
-
pt feels ok
urine still clear
on flomax
am cr pending
Objective
-
Vital Signs
Temp Pulse Resp BP Pulse Ox
98.4 F 76 18 132/79 98
10/31/24 22:45 10/31/24 22:45 10/31/24 22:45 10/31/24 22:45 10/31/24 22:45
Intake and Output
10/31/24 11/01/24 11/02/24
06:59 06:59 06:59
Intake Total 960 / 960 1910 / 1910
Output Total 3100 / 3100 2750 / 2750
Balance -2140 / -2140 -840 / -840
Intake:
Oral fluids 960 / 960 960 / 960
IV fluids (Total) 900 / 900
IV piggybacks 50 / 50
Output:
Urine, Rodriguez 3100 / 3100 2750 / 2750
Laboratory Results
11/01/24 06:05
Review of Systems
-
Constitutional: No Symptoms
Respiratory: No Symptoms
Cardiac: No Symptoms
Abdomen/GI: No Symptoms
Physical Exam
-
General - no acute distress
Abdomen - soft, non-tender
Genitalia - rodriguez in place
[2024-11-01 07:52] LABS: ALT (SGPT) 11 U/L (0-35); AST (SGOT) 19 U/L (14-36); Albumin 3.5 g/dl (3.5-5.0); Alkaline Phosphatase 61 U/L (38-126); Blood Urea Nitrogen 52 mg/dl (7-17); Calcium 9.1 mg/dl (8.4-10.2); Carbon Dioxide 23 mmol/L (22-30); Chloride 104 mmol/L (98-107); Estimated Creatinine Clearance 16 ml/min; Glucose 153 mg/dl (70-99); Lipase 786 U/L (23-300); Sodium 138 mmol/L (135-145); Total Bilirubin 0.4 mg/dl (0.2-1.3); Total Protein 5.6 g/dl (6.3-8.2); eGFR 16.08
[2024-11-01 08:00] VITALS: BP 132/87
[2024-11-01] MEDS: NOVOLOG FLEXPEN-LOW RESISTANCE 300 UNITS SC (08:00)
[2024-11-01] MEDS: NSS (PRESERVATIVE FREE) 10 ML IV ×2 (09:02→20:58)
[2024-11-01] MEDS: FLOMAX 0.4 MG PO (09:02)
[2024-11-01] MEDS: PROTONIX IV 40 MG IV ×2 (09:03→20:58)
[2024-11-01 11:44] LABS: Glucose - Point of Care 326 mg/dl (70-99)
--- NOTE | 2024-11-01 11:49 | W.PN.HOSP.TC ---
Today's Communication/Plan
-
no overt bleeding - anemia most likely hemodilutional, but patient signed consent. Follow Hgb
COnt IVF
Assessment / Plan
Assessment / Plan
64yo F with PMHx of HLD, DM, carotid stenosis s/p L CEA on 06/20/24 came with worsening Cr around 3.0 found initially 2 weeks ago by her medical director of hospice and worsened to around 5.0 on repeated blood test before admission. Patient was taking 3 Ibuprofen
PM every night to fall asleep for long time. Also found acute urinary retention in ED with 1L of PVR. cannot exclude fibroma to be a reason for retention, will need outpatient urodynamic studies, Urogynecologist follow up. TOV when kidney function
on baseline. Epigastric pain and anemia with possible PUD improved on sucralfate and PPI. Also unclear elevated lipase significance - GI to follow with EUS vs CT depending on kidney recovery
A/P:
#RANDOLPH 2/2 ATN
#Metabolic acidosis 2/2 above
Granular casts on UA
IVF
Avoid NSAIDs, ABDULLAHI, ARB at this time
serial BMP
Nephrology consult: autoimmune workup, SPAP, UPAP sent
Patient without new rash, hemoptysis, headaches
#Hypomagnesemia
replete and follow
#Hematuria with anemia on admission, anemia of chronic disease
#Acute urinary retention
#Uterine fibroma
Urology consult: cannot exclude fibroma to be a reason for retention, will need outpatient urodynamic studies, Urogynecologist follow up. TOV when kidney function on baseline
UCx neg, UTI ruled out, stopped Abx
patient had Dennison before, possible acute on chronic retention
Hematuria improving, most likely 2/2 trauma
Urology consult
Ucx ntd - Abx stopped
#epigastric pain with recent anemia
#Elevated lipase
no significant findings on CT
possible PUD
check stool for occult blood with anemia
PPI BID
GI consult: recommended CT with contrast when possible, currently high risk with RANDOLPH and not much benefit since pain subsided on PPI. Might need eventual EUS. Follow Hgb
#L renal cyst
#Non-obstructing nephrolithiasis
#Benign adrenal hyperplasia
no follow up advised
#Carotid stenosis s/p L CEA
cont ASA, statin
#DM type 2 with circulatory complications
DM diet, Insulin SS, accuchecks. Stop metformin
DVT ppx SCDs (2/2 hematuria)
FUll code
I have spent at least 39min reviewing chart, test results, communication with consultants, family and providing direct patient care
Anticipated Discharge: > 48 hours
Subjective/Interval History
-
Date of Service: November 01, 2024
Objective Data
-
Labs:
Laboratory Results
11/01/24
06:05
WBC 7.4
Hgb 7.7 L
Hct 21.2 L
Plt Count 320
Sodium 138
Potassium 3.0 L
Chloride 104
Carbon Dioxide 23
BUN 52 H
Creatinine 3.1 H
Glucose 153 H
Calcium 9.1
Total Bilirubin 0.4
AST 19
ALT 11
Alkaline Phosphatase 61
Vital Signs:
Vital Signs
Temp Pulse Resp BP Pulse Ox
98.2 F 72 19 132/87 100
11/01/24 07:00 11/01/24 07:00 11/01/24 07:00 11/01/24 07:00 11/01/24 07:00
I&O
10/31/24 11/01/24 11/02/24
06:59 06:59 06:59
Intake Total 960 / 960 1910 / 1910
Output Total 3100 / 3100 2750 / 2750
Balance -2140 / -2140 -840 / -840
Review of Systems
-
History Source: Patient
All other systems: Reviewed and negative
Physical Exam
-
General: No Apparent Distress
HEENT: Normocephalic
Respiratory: Clear to Auscultation
GI: Soft, Nontender and Nondistended
Genito-urinary: Dennison
Musculoskeletal: No Clubbing, No Cyanosis and No Edema
Neuro: Awake, Alert, Oriented and AO x 3
Psych: Calm
--- NOTE | 2024-11-01 12:05 | W.PN.NEPH.PH ---
Today's Communication / Plan
-
Maintain Dennison catheter
No more IV fluid
Creatinine down to 3
If creatinine continues to decrease tomorrow she could be discharged with urology follow-up
Assessment/Plan
-
Assessment
RANDOLPH
Urinary retention
Gross hematuria
Hypomagnesemia
Hypokalemia
Metabolic acidosis
Diabetes mellitus type 2
Proteinuria nephrotic range
Plan
No more IV fluids
Creatinine down to 3.1 and grossly nonoliguric in excess of 2.7 L
Replete potassium
Follow BMP
Maintain Dennison today, urine retention could be due to underlying evolving diabetic autonomic neuropathy or antihistamine effect from nightly benadryl
Will likely require voiding trial once creatinine returns to baseline
Tamsulosin
Hematuria likely traumatic
Serologic workup ordered given abnormal urinalysis and acute kidney injury, however kidney function is improving rapidly which is likely more consistent with obstructive uropathy
However urine eosinophils were positive at 2% from 10/30/2024, so possible interstitial nephritis may be in play
-
-
Date of Service: November 01, 2024
CC / HPI / ROS
-
Chief Complaint:
RANDOLPH
History of Present Illness:
RANDOLPH/Cr better at 3.1
K low 3.0
Anemia worsening
BP stable
Nonoliguric
Review of Systems:
No chest pain or shortness of breath
Grossly nonoliguric in excess of 2.7 L from Dennison catheter
Labs
-
Labs:
WBC 7.4 10^3/uL (4.8-10.8) 11/01/24 06:05
RBC 2.57 10^6/uL (4.20-5.40) L 11/01/24 06:05
Hgb 7.7 g/dL (12.0-16.0) L 11/01/24 06:05
Hct 21.2 % (37.0-47.0) L 11/01/24 06:05
Plt Count 320 10^3/uL (130-400) 11/01/24 06:05
Sodium 138 mmol/L (135-145) 11/01/24 06:05
Potassium 3.0 mmol/L (3.5-5.1) L 11/01/24 06:05
Chloride 104 mmol/L (98-107) 11/01/24 06:05
Carbon Dioxide 23 mmol/L (22-30) 11/01/24 06:05
BUN 52 mg/dl (7-17) H 11/01/24 06:05
Creatinine 3.1 mg/dL (0.6-1.0) H 11/01/24 06:05
eGFR 16.08 11/01/24 06:05
Glucose 153 mg/dl (70-99) H 11/01/24 06:05
Calcium 9.1 mg/dl (8.4-10.2) 11/01/24 06:05
Phosphorus 4.9 mg/dl (2.5-4.5) H 10/31/24 07:11
Albumin 3.5 g/dl (3.5-5.0) 11/01/24 06:05
Physical Exam
-
Vital Signs:
Vital Signs
Temp Pulse Resp BP Pulse Ox
98.2 F 72 19 132/87 100
11/01/24 07:00 11/01/24 07:00 11/01/24 07:00 11/01/24 07:00 11/01/24 07:00
Cardiovascular:: Regular rate and rhythm
Respiratory:: Bilateral: Coarse
Lung Excursion:: Normal
Abdomen:: Nontender and Soft
Bowel Sounds:: Normal
Extremity Edema:: None: Bilateral:
Dennison Catheter: Yes
[2024-11-01 12:30] LABS: Myeloperoxidase Antibody 0 AU/mL (0-19); Serine Protease-3, IgG 4 AU/mL (0-19)
[2024-11-01] MEDS: KCL 40 MEQ PO (13:11)
[2024-11-01 13:17] LABS: Glucose - Point of Care 340 mg/dl (70-99)
[2024-11-01] MEDS: NOVOLOG FLEXPEN-LOW RESISTANCE 4 UNITS SC (13:18)
[2024-11-01 15:00] VITALS: BP 127/66
[2024-11-01 16:48] LABS: Glucose - Point of Care 137 mg/dl (70-99)
[2024-11-01] MEDS: NOVOLOG FLEXPEN-LOW RESISTANCE SC (17:38)
[2024-11-01] MEDS: CRESTOR 40 MG PO (17:40)
[2024-11-01] MEDS: KCL 20 MEQ PO (20:58)
[2024-11-01 21:53] LABS: Glucose - Point of Care 354 mg/dl (70-99)
[2024-11-01 23:19] LABS: 24 Hour Urine Total Volume Not Provided mL; Urine Collection Length Not Provided hr; Urine Free Kappa Light Chains 97.51 mg/L (0.00-32.90); Urine Free Lambda Light Chains 32.36 mg/L (0.00-3.79)
[2024-11-01 23:28] VITALS: BP 103/54
[2024-11-02 07:02] LABS: Hematocrit 22.9 % (37.0-47.0); Hemoglobin 8.3 g/dL (12.0-16.0); Mean Corp Hgb Conc. 36.2 g/dL (33.0-37.0); Mean Corpuscular Hgb 30.5 pg (27.0-31.0); Mean Corpuscular Volume 84.2 fL (81.0-99.0); Mean Platelet Volume 10.6 fL (7.4-10.4); Platelet Count 328 10^3/uL (130-400); Red Blood Cell Count 2.72 10^6/uL (4.20-5.40); Red Cell Dist. Width 14.3 % (11.5-14.5); White Blood Cell Count 8.3 10^3/uL (4.8-10.8)
[2024-11-02 07:21] VITALS: BP 145/81
[2024-11-02 07:21] LABS: Blood Urea Nitrogen 56 mg/dl (7-17); Calcium 9.4 mg/dl (8.4-10.2); Carbon Dioxide 23 mmol/L (22-30); Chloride 106 mmol/L (98-107); Estimated Creatinine Clearance 18 ml/min; Glucose 158 mg/dl (70-99); Potassium 3.1 mmol/L (3.5-5.1); Sodium 138 mmol/L (135-145); eGFR 18.98
[2024-11-02 07:26] LABS: Glucose - Point of Care 175 mg/dl (70-99)
--- NOTE | 2024-11-02 08:12 | W.PN.URO.CBU ---
Today's Communication / Plan
-
discharge when medically stable with flomax and rodriguez
Assessment / Plan
-
urinary retention
ARF
rodriguez remains in place
reviewed with nephrology- they believe there may be a post obst element
will leave rodriguez in place and continue flomax
trend cr level
for discharge with rodriguez and flomax
pt should get cr level as outpt next week- once normalized will remove rodriguez for TOV
she should call after discharge to arrange outpt f/u with me- dr buchanan
Diagnosis
-
Date of Service: November 02, 2024
-
Patient Diagnosis:
urinary retention
ARF
Subjective
-
pt stable urologically
urine clear
cr slow decline- now 2.7
Objective
-
Vital Signs
Temp Pulse Resp BP Pulse Ox
97.9 F 65 18 145/81 98
11/02/24 07:21 11/02/24 07:21 11/02/24 07:21 11/02/24 07:21 11/02/24 07:21
Intake and Output
11/01/24 11/02/24 11/03/24
06:59 06:59 06:59
Intake Total 1909 / 0
Output Total 2750 / 2750 1900 / 1900
Balance -840 / -840 -1900 / -1900
Intake:
Oral fluids 960 / 960
IV fluids (Total) 900 / 900
IV piggybacks 50 / 50
Output:
Urine, Rodriguez 2750 / 2750 1000 / 1000
Urine, Voided 900 / 900
Laboratory Results
11/02/24 06:30
11/02/24 06:30
Physical Exam
-
General - no acute distress
Abdomen - soft, non-tender
Genitalia - rodriguez in place
[2024-11-02] MEDS: NOVOLOG FLEXPEN-LOW RESISTANCE 1 UNITS SC (08:33)
[2024-11-02] MEDS: NSS (PRESERVATIVE FREE) 10 ML IV ×2 (08:33→20:50)
[2024-11-02] MEDS: PROTONIX IV 40 MG IV ×2 (08:33→20:50)
[2024-11-02] MEDS: FLOMAX 0.4 MG PO (08:33)
--- NOTE | 2024-11-02 10:01 | CM ---
Chart reviewed and pillowcase turner received a consult for visiting nurses at home for [place] care/management. Home care options reviewed with patient and patient has selected [facility], referral sent to [facility].
Plan; Home with [facility], referral sent.
[2024-11-02 11:34] LABS: Glucose - Point of Care 246 mg/dl (70-99)
[2024-11-02] MEDS: NOVOLOG FLEXPEN-LOW RESISTANCE 2 UNITS SC ×2 (11:51→16:42)
--- NOTE | 2024-11-02 11:59 | W.PN.HOSP.TC ---
Today's Communication/Plan
-
dc
Assessment / Plan
Assessment / Plan
64yo F with PMHx of HLD, DM, carotid stenosis s/p L CEA on 06/20/24 came with worsening Cr around 3.0 found initially 2 weeks ago by her termite treater and worsened to around 5.0 on repeated blood test before admission. Patient was taking 3 Ibuprofen
PM every night to fall asleep for long time. Also found acute urinary retention in ED with 1L of PVR. cannot exclude fibroma to be a reason for retention, will need outpatient urodynamic studies, Urogynecologist follow up. TOV when kidney function
on baseline. Epigastric pain and anemia with possible PUD improved on sucralfate and PPI. Also unclear elevated lipase significance - GI to follow with EUS vs CT depending on kidney recovery. Since Cr kept improving off IVF - as per agreemnt with
nephrology patient can be d/c for outpatient f/u with urologist. Most likey due to rapid improvement of Cr with rodriguez -etiology of rertention is due to fibroma obstruction. Medically stabkle for d/c home with outpatient urology and GI follow up.
Hgb remained stable. BMP and CBC in 5 days recommended. Absolutely no NSAIDs - patient verbalized understanding
A/P:
#RANDOLPH 2/2 ATN
#Metabolic acidosis 2/2 above
Granular casts on UA
IVF
Avoid NSAIDs, ABDULLAHI, ARB at this time
serial BMP
Nephrology consult: autoimmune workup, SPAP, UPAP sent
Patient without new rash, hemoptysis, headaches
#Hypomagnesemia
replete and follow
#Hematuria with anemia on admission, anemia of chronic disease
#Acute urinary retention
#Uterine fibroma
Urology consult: cannot exclude fibroma to be a reason for retention, will need outpatient urodynamic studies, Urogynecologist follow up. TOV when kidney function on baseline
UCx neg, UTI ruled out, stopped Abx
patient had Rodriguez before, possible acute on chronic retention
Hematuria improving, most likely 2/2 trauma
Urology consult
Ucx ntd - Abx stopped
#epigastric pain with recent anemia
#Elevated lipase
no significant findings on CT
possible PUD
PPI BID
GI consult: recommended CT with contrast when possible, currently high risk with RANDOLPH and not much benefit since pain subsided on PPI. Might need eventual EUS. Follow Hgb
#L renal cyst
#Non-obstructing nephrolithiasis
#Benign adrenal hyperplasia
no follow up advised
#Carotid stenosis s/p L CEA
cont ASA, statin
#DM type 2 with circulatory complications
DM diet, Insulin SS, accuchecks. Stop metformin
DVT ppx SCDs (2/2 hematuria)
FUll code
I have spent at least 39min reviewing chart, test results, communication with consultants, family and providing direct patient care
Anticipated Discharge: Today
Subjective/Interval History
-
Date of Service: November 02, 2024
Objective Data
-
Labs:
Laboratory Results
11/02/24
06:30
WBC 8.3
Hgb 8.3 L
Hct 22.9 L
Plt Count 328
Sodium 138
Potassium 3.1 L
Chloride 106
Carbon Dioxide 23
BUN 56 H
Creatinine 2.7 H
Glucose 158 H
Calcium 9.4
Vital Signs:
Vital Signs
Temp Pulse Resp BP Pulse Ox
97.9 F 65 18 145/81 98
11/02/24 07:21 11/02/24 07:21 11/02/24 07:21 11/02/24 07:21 11/02/24 07:21
I&O
11/01/24 11/02/24 11/03/24
06:59 06:59 06:59
Intake Total 1909
Output Total 2750 / 2750 1899
Balance -840 / -840 -1899 / -1899
Review of Systems
-
History Source: Patient
All other systems: Reviewed and negative
Physical Exam
-
General: No Apparent Distress
HEENT: Normocephalic
Cardiac: Regular Rhythm
GI: Soft, Nontender and Nondistended
Genito-urinary: Clear Urine and Rodriguez
Musculoskeletal: No Clubbing, No Cyanosis and No Edema
Neuro: Awake, Alert, Oriented and AO x 3
Psych: Calm
--- NOTE | 2024-11-02 12:08 | W.DCSUMMARY ---
Discharge Summary
Discharge Data
Date of Admission: 10/28/24
Date of Discharge: 11/02/24
-
Pending Results: No
Hospital Course
64yo F with PMHx of HLD, DM, carotid stenosis s/p L CEA on 06/20/24 came with worsening Cr around 3.0 found initially 2 weeks ago by her steam trap worker and worsened to around 5.0 on repeated blood test before admission. Patient was taking 3 Ibuprofen
PM every night to fall asleep for long time. Also found acute urinary retention in ED with 1L of PVR. cannot exclude fibroma to be a reason for retention, will need outpatient urodynamic studies, Urogynecologist follow up. TOV when kidney function
on baseline. Epigastric pain and anemia with possible PUD improved on sucralfate and PPI. Also unclear elevated lipase significance - GI to follow with EUS vs CT depending on kidney recovery. Since Cr kept improving off IVF - as per agreement with
nephrology patient can be d/c for outpatient f/u with urologist. Most likey due to rapid improvement of Cr with rodriguez -etiology of rertention is due to fibroma obstruction. Medically stabkle for d/c home with outpatient urology and GI follow up.
Hgb remained stable. BMP and CBC in 5 days recommended. Absolutely no NSAIDs - patient verbalized understanding
Metformin stopped due to RANDOLPH. Trulicity can cont. Patient was taking ASA for unknown for her reason - will stop as no arrhythmia noted during hospitalization
I have spent at least 39min reviewing chart, test results, communication with consultants, family and providing direct patient care
Patient was managed for:
#RANDOLPH 2/2 ATN
#Metabolic acidosis 2/2 above
#Hypomagnesemia
#Hematuria with anemia on admission, anemia of chronic disease
#Acute urinary retention
#Uterine fibroma
#epigastric pain with recent anemia
#Elevated lipase
#L renal cyst
#Non-obstructing nephrolithiasis
#Benign adrenal hyperplasia
#Carotid stenosis s/p L CEA
#DM type 2 with circulatory complications
Discharge Plan
-
Patient Disposition: Home (Routine Discharge)
Discharge Diagnosis/Procedures: RANDOLPH, urinary retention
Blood Work: BMP, CBC with family doctor in 5 days
Referrals:
Jasiel Hall MD [Active] - in one to two weeks (EGD, EUS)
Keagan Watkins DO [Active] - in one to two weeks
Monica Nguyen PA-C [Family Provider] - in less than 1 week (for BMP, CBC blood test)
Darrian Morales MD [Active] - in one to two weeks
Prescriptions:
New
tamsulosin 0.4 mg Capsule
0.4 mg PO DAILY Qty: 30 0RF
pantoprazole 40 mg tablet,delayed release (DR/EC)
40 mg PO DIRECTED Qty: 90 0RF
Rx Instructions:
take 1 tab BID for 30 days, then 1 tab daily
Continued
Trulicity 0.75 mg/0.5 mL Pen Injector
0.75 mg SC WE
rosuvastatin 40 mg Tablet
40 mg PO QPM Qty: 30 0RF
Discontinued
metformin 500 mg Tablet
1,000 mg PO BID
aspirin 325 mg Tablet
325 mg PO DAILY
Advil PM 200-38 mg Tablet
2 cap PO HSPRN PRN (Reason: sleep )
Discharge Orders:
Discharge Patient (As Directed); Ordered 11/02/24
Ordered By: Jamie Aldridge
Discharge Date and Time
Print Language: SERBIAN
--- NOTE | 2024-11-02 12:18 | W.PN.UPDATE ---
Update Note
Progress Note Update
As per further discussion with Nephrology -severely depleted on potassium - will replete and follow AM labs, d/c cancelled
--- NOTE | 2024-11-02 12:18 | W.PN.NEPH.PH ---
Today's Communication / Plan
-
80meq KCL
follow bmp
Assessment/Plan
-
Assessment
RANDOLPH
Urinary retention
Gross hematuria
Hypomagnesemia
Hypokalemia
Metabolic acidosis
Diabetes mellitus type 2
Proteinuria nephrotic range
Plan
Creatinine improving to 2 point
Creatinine down to 3.1 and grossly nonoliguric in excess of 2.7 L
Replete potassium again (likely due to postobstructive diuresis)
Follow BMP
Maintain Rodriguez today, urine retention could be due to underlying evolving diabetic autonomic neuropathy or antihistamine effect from nightly benadryl
Will likely require voiding trial once creatinine returns to baseline but will be done outpatient with
Tamsulosin
Hematuria likely traumatic
Serologic workup ordered given abnormal urinalysis and acute kidney injury, however kidney function is improving rapidly which is likely more consistent with obstructive uropathy
However urine eosinophils were positive at 2% from 10/30/2024, so possible interstitial nephritis may be in play
-
-
Date of Service: November 02, 2024
CC / HPI / ROS
-
Chief Complaint:
RANDOLPH
History of Present Illness:
RANDOLPH/Cr better at 2.7
K low 3.1 despite 60 mill equivalents provided yesterday
Anemia at 8.3
BP stable
Nonoliguric
Review of Systems:
No chest pain or shortness of breath
Grossly nonoliguric via rodriguez
Labs
-
Labs:
WBC 8.3 10^3/uL (4.8-10.8) 11/02/24 06:30
RBC 2.72 10^6/uL (4.20-5.40) L 11/02/24 06:30
Hgb 8.3 g/dL (12.0-16.0) L 11/02/24 06:30
Hct 22.9 % (37.0-47.0) L 11/02/24 06:30
Plt Count 328 10^3/uL (130-400) 11/02/24 06:30
Sodium 138 mmol/L (135-145) 11/02/24 06:30
Potassium 3.1 mmol/L (3.5-5.1) L 11/02/24 06:30
Chloride 106 mmol/L (98-107) 11/02/24 06:30
Carbon Dioxide 23 mmol/L (22-30) 11/02/24 06:30
BUN 56 mg/dl (7-17) H 11/02/24 06:30
Creatinine 2.7 mg/dL (0.6-1.0) H 11/02/24 06:30
eGFR 18.98 11/02/24 06:30
Glucose 158 mg/dl (70-99) H 11/02/24 06:30
Calcium 9.4 mg/dl (8.4-10.2) 11/02/24 06:30
Phosphorus 4.9 mg/dl (2.5-4.5) H 10/31/24 07:11
Albumin 3.5 g/dl (3.5-5.0) 11/01/24 06:05
Physical Exam
-
Vital Signs:
Vital Signs
Temp Pulse Resp BP Pulse Ox
97.9 F 65 18 145/81 98
11/02/24 07:21 11/02/24 07:21 11/02/24 07:21 11/02/24 07:21 11/02/24 07:21
Cardiovascular:: Regular rate and rhythm
Respiratory:: Bilateral: Coarse
Lung Excursion:: Normal
Abdomen:: Nontender and Soft
Bowel Sounds:: Normal
Extremity Edema:: None: Bilateral:
Rodriguez Catheter: Yes
[2024-11-02] MEDS: KCL 40 MEQ PO ×2 (12:47→16:44)
[2024-11-02] MEDS: PREVNAR 20 0.5 ML IM (12:48)
[2024-11-02 15:07] VITALS: BP 121/70
[2024-11-02 16:03] LABS: Glucose - Point of Care 241 mg/dl (70-99)
[2024-11-02] MEDS: CRESTOR 40 MG PO (16:44)
[2024-11-02 20:58] LABS: Glucose - Point of Care 192 mg/dl (70-99)
[2024-11-02 23:10] VITALS: BP 126/78
[2024-11-03 00:44] LABS: Albumin 3.83 g/dL (3.75-5.01); Alpha 1 Globulin 0.33 g/dL (0.19-0.46); Alpha 2 Globulin 0.79 g/dL (0.48-1.05); SPEP IFE Reflex Not Done; Total Protein-Electrophoresis 6.2 g/dL (6.3-8.2)
[2024-11-03 07:26] VITALS: BP 138/77
[2024-11-03 07:36] LABS: Glucose - Point of Care 191 mg/dl (70-99)
[2024-11-03] MEDS: FLOMAX 0.4 MG PO (08:17)
[2024-11-03] MEDS: NOVOLOG FLEXPEN-LOW RESISTANCE 1 UNITS SC ×2 (08:18→11:56)
[2024-11-03] MEDS: NSS (PRESERVATIVE FREE) 10 ML IV (08:18)
[2024-11-03] MEDS: PROTONIX IV 40 MG IV (08:18)
[2024-11-03 09:32] LABS: Hematocrit 23.5 % (37.0-47.0); Hemoglobin 8.2 g/dL (12.0-16.0)
[2024-11-03 10:04] LABS: Blood Urea Nitrogen 51 mg/dl (7-17); Calcium 9.5 mg/dl (8.4-10.2); Carbon Dioxide 21 mmol/L (22-30); Chloride 110 mmol/L (98-107); Estimated Creatinine Clearance 20 ml/min; Glucose 214 mg/dl (70-99); Sodium 140 mmol/L (135-145); eGFR 21.87
[2024-11-03 11:20] LABS: Glucose - Point of Care 194 mg/dl (70-99)
--- NOTE | 2024-11-03 13:41 | W.PN.HOSP.TC ---
Addendum entered and electronically signed by Ernesto Kim MD 11/03/24 13:53:
Time of discharge 38-minutes
Original Note:
Today's Communication/Plan
-
monitor vitals
See plan
dc today
Patient patient will follow-up with nephrology outpatient
Monitor BMP
Low dose glipizide
Assessment / Plan
Assessment / Plan
64yo F with PMHx of HLD, DM, carotid stenosis s/p L CEA on 06/20/24 came with worsening Cr around 3.0 found initially 2 weeks ago by her car shifter and worsened to around 5.0 on repeated blood test before admission. Patient was taking 3 Ibuprofen
PM every night to fall asleep for long time. Also found acute urinary retention in ED with 1L of PVR. cannot exclude fibroma to be a reason for retention, will need outpatient urodynamic studies, Urogynecologist follow up. TOV when kidney function
on baseline. Epigastric pain and anemia with possible PUD improved on sucralfate and PPI. Also unclear elevated lipase significance - GI to follow with EUS vs CT depending on kidney recovery. Since Cr kept improving off IVF - as per agreemnt with
nephrology patient can be d/c for outpatient f/u with urologist. Most likey due to rapid improvement of Cr with rodriguez -etiology of rertention is due to fibroma obstruction. Medically stabkle for d/c home with outpatient urology and GI follow up.
Hgb remained stable. BMP and CBC in 5 days recommended. Absolutely no NSAIDs - patient verbalized understanding
A/P:
#RANDOLPH 2/2 ATN
#Metabolic acidosis 2/2 above
Granular casts on UA
Avoid NSAIDs, ABDULLAHI, ARB at this time
serial BMP
Nephrology consult: autoimmune workup, SPAP, UPAP sent
Patient without new rash, hemoptysis, headaches
cr now 2.4
#Hypomagnesemia
replete and follow
#Hematuria with anemia on admission, anemia of chronic disease
#Acute urinary retention
#Uterine fibroma
Urology consult: cannot exclude fibroma to be a reason for retention, will need outpatient urodynamic studies, Urogynecologist follow up. TOV when kidney function on baseline
UCx neg, UTI ruled out, stopped Abx
patient had Rodriguez before, possible acute on chronic retention
Hematuria improving, most likely 2/2 trauma
Urology following; patient will follow with them outpatient
Ucx ntd - Abx stopped
nephrology will also follow-up with patient
#epigastric pain with recent anemia
#Elevated lipase
no significant findings on CT
possible PUD
PPI BID
GI consult: recommended CT with contrast when possible, currently high risk with RANDOLPH and not much benefit since pain subsided on PPI. Might need eventual EUS. Follow Hgb
#L renal cyst
#Non-obstructing nephrolithiasis
#Benign adrenal hyperplasia
no follow up advised
#Carotid stenosis s/p L CEA
cont ASA, statin
#DM type 2 with circulatory complications
DM diet, Insulin SS, accuchecks. Stop metformin
Started low-dose glipizide, patient will follow-up with endocrinology soon
DVT ppx SCDs (2/2 hematuria)
FUll code
General: No Apparent Distress
HEENT: Normocephalic
Cardiac: Regular Rhythm
GI: Soft, Nontender and Nondistended
Genito-urinary: Clear Urine and Rodriguez
Musculoskeletal: No Clubbing, No Cyanosis and No Edema
Neuro: Awake, Alert, Oriented and AO x 3
Psych: Calm
Anticipated Discharge: Today
Subjective/Interval History
-
Date of Service: November 03, 2024
Denies pain
Objective Data
-
Labs:
Laboratory Results
11/03/24 11/03/24
08:49 08:50
Hgb 8.2 L
Hct 23.5 L
Sodium 140
Potassium 4.0 D
Chloride 110 H
Carbon Dioxide 21 L
BUN 51 H
Creatinine 2.4 H
Glucose 214 H
Calcium 9.5
Vital Signs:
Vital Signs
Temp Pulse Resp BP Pulse Ox
98.3 F 72 20 138/77 100
11/03/24 07:26 11/03/24 07:26 11/03/24 07:26 11/03/24 07:26 11/03/24 07:26
I&O
11/02/24 11/03/24 11/04/24
06:59 06:59 06:59
Intake Total 1200 / 1200
Output Total 1900 / 1900 1700 / 1700
Balance -1900 / -1900 -500 / -500
--- NOTE | 2024-11-03 13:43 | W.PN.NEPH.PH ---
Today's Communication / Plan
-
ok to d/c
BMP in 3days
Assessment/Plan
-
Assessment
RANDOLPH
Urinary retention
Gross hematuria
Hypomagnesemia
Hypokalemia
Metabolic acidosis
Diabetes mellitus type 2
Proteinuria nephrotic range
Plan
Creatinine improving to 2.4
k repleted (hypokalemia likely due to postobstructive diuresis)
Maintain Rodriguez per urology, urine retention could be due to underlying evolving diabetic autonomic neuropathy or antihistamine effect from nightly benadryl
Will likely require voiding trial once creatinine returns to baseline but will be done outpatient with
cont Tamsulosin
Hematuria likely traumatic-resolved
Serologic workup ordered given abnormal urinalysis and acute kidney injury, however kidney function is improving rapidly which is likely more consistent with obstructive uropathy
However urine eosinophils were positive at 2% from 10/30/2024, so possible interstitial nephritis may be in play
ok to d/c per renal , BMP in 3days
f/u nephro
all her questions answered
-
-
Date of Service: November 03, 2024
CC / HPI / ROS
-
Chief Complaint:
RANDOLPH
History of Present Illness:
RANDOLPH/Cr better at 2.4
K better at 4
Anemia at 8.2 stable
BP stable
Nonoliguric
Review of Systems:
No chest pain or shortness of breath
Grossly nonoliguric via rodriguez
Labs
-
Labs:
WBC 8.3 10^3/uL (4.8-10.8) 11/02/24 06:30
RBC 2.72 10^6/uL (4.20-5.40) L 11/02/24 06:30
Hgb 8.2 g/dL (12.0-16.0) L 11/03/24 08:50
Hct 23.5 % (37.0-47.0) L 11/03/24 08:50
Plt Count 328 10^3/uL (130-400) 11/02/24 06:30
Sodium 140 mmol/L (135-145) 11/03/24 08:49
Potassium 4.0 mmol/L (3.5-5.1) D 11/03/24 08:49
Chloride 110 mmol/L (98-107) H 11/03/24 08:49
Carbon Dioxide 21 mmol/L (22-30) L 11/03/24 08:49
BUN 51 mg/dl (7-17) H 11/03/24 08:49
Creatinine 2.4 mg/dL (0.6-1.0) H 11/03/24 08:49
eGFR 21.87 11/03/24 08:49
Glucose 214 mg/dl (70-99) H 11/03/24 08:49
Calcium 9.5 mg/dl (8.4-10.2) 11/03/24 08:49
Phosphorus 4.9 mg/dl (2.5-4.5) H 10/31/24 07:11
Albumin 3.5 g/dl (3.5-5.0) 11/01/24 06:05
Physical Exam
-
Vital Signs:
Vital Signs
Temp Pulse Resp BP Pulse Ox
98.3 F 72 20 138/77 100
11/03/24 07:26 11/03/24 07:26 11/03/24 07:26 11/03/24 07:26 11/03/24 07:26
Cardiovascular:: Regular rate and rhythm
Respiratory:: Bilateral: CTA
Lung Excursion:: Normal
Abdomen:: Nontender and Soft
Bowel Sounds:: Normal
Extremity Edema:: None: Bilateral:
Rodriguez Catheter: Yes
--- NOTE | 2024-11-03 13:51 | W.DCSUMMARY ---
Discharge Summary
Discharge Data
Date of Admission: 10/28/24
Date of Discharge: 11/03/24
-
Pending Results: No
Hospital Course
64yo F with PMHx of HLD, DM, carotid stenosis s/p L CEA on 06/20/24 came with worsening Cr around 3.0 found initially 2 weeks ago by her machine puller and laster and worsened to around 5.0 on repeated blood test before admission. Patient was taking 3 Ibuprofen
PM every night to fall asleep for long time. Also found acute urinary retention in ED with 1L of PVR. cannot exclude fibroma to be a reason for retention, will need outpatient urodynamic studies, Urogynecologist follow up. will need voiding trial
when kidney function on baseline. Epigastric pain and anemia with possible PUD improved on sucralfate and PPI. Also unclear elevated lipase significance - GI to follow with EUS vs CT depending on kidney recovery. Since Cr kept improving off IVF - as
per agreement with nephrology patient can be d/c for outpatient f/u with urologist and nephrology. Most likey due to rapid improvement of Cr with rodriguez -etiology of rertention is due to fibroma obstruction. On discharge patient instructed to get
labs soon outpatient. For her diabetes she was started on glipizide since now off metformin. She was instructed to follow-up with machine puller and laster soon outpatient
Metformin stopped due to RANDOLPH. Trulicity can cont. Patient was taking ASA for unknown for her reason - will stop as no arrhythmia noted during hospitalization
Discharge Plan
-
Patient Disposition: Home (Routine Discharge)
Discharge Diagnosis/Procedures: Acute kidney injury
urinary retention
Metabolic acidosis
Anemia of chronic disease
Uterine fibroma
Condition: Fair
Diet: Diabetic, Carb Controlled
Activity: As tolerated
Driving Restrictions: As prior to admission
Blood Work: BMP on 11/06/2024 with nephrology. CBC later this week with primary care provider
Activity Restrictions/Additional Instructions:
Follow-up with endocrinology soon
Referrals:
Jasiel Hall MD [Active] - in one to two weeks (EGD, EUS)
Keagan Watkins DO [Active] - in one to two weeks
Monica Nguyen PA-C [Family Provider] - in less than 1 week (for BMP, CBC blood test)
Darrian Morales MD [Active] - in one to two weeks
Prescriptions:
New
tamsulosin 0.4 mg Capsule
0.4 mg PO DAILY Qty: 30 0RF
pantoprazole 40 mg tablet,delayed release (DR/EC)
40 mg PO DIRECTED Qty: 90 0RF
Rx Instructions:
take 1 tab BID for 30 days, then 1 tab daily
glipizide 5 mg Tablet
2.5 mg PO BID@0800,1700 Qty: 30 0RF
Continued
Trulicity 0.75 mg/0.5 mL Pen Injector
0.75 mg SC WE
rosuvastatin 40 mg Tablet
40 mg PO QPM Qty: 30 0RF
Discontinued
metformin 500 mg Tablet
1,000 mg PO BID
aspirin 325 mg Tablet
325 mg PO DAILY
Advil PM 200-38 mg Tablet
2 cap PO HSPRN PRN (Reason: sleep )
Discharge Orders:
Discharge Patient (As Directed); Ordered 11/03/24
Ordered By: Ernesto Kim
Discharge Date and Time
Discharge Date/Time: 11/03/24 16:18
Print Language: MONGOLIAN
--- NOTE | 2024-11-03 14:10 | CM ---
Chart reviewed and patient is for discharge to home today with [facility].
Plan; Home with [facility].
[2024-11-03 15:05] VITALS: BP 145/81
== END 2024-11-03 16:18 | disposition home health service (06) | DRG 698 ==
LOC: 4 WEST ACU 22:09
PROVIDERS: Internal Medicine; Physician Assistant; Specialist; Student in an Organized Health Care Education/Training Program; ADMITTING PHYSICIAN Internal Medicine; ATTENDING PHYSICIAN Internal Medicine; CONSULT PHYSICIAN Specialist; EMERGENCY PHYSICIAN Emergency Medicine; FAMILY PHYSICIAN Physician Assistant Medical; OTHER PHYSICIAN Specialist
PROC: 3E0234Z Introduction of Serum, Toxoid and Vaccine into Muscle, Percutaneous Approach (ICD-10-PCS; 2024-11-02)
DX: N13.9 Obstructive and reflux uropathy, unspecified (principal); N17.0 Acute kidney failure with tubular necrosis; E87.20 Acidosis, unspecified; K27.9 Peptic ulcer, site unspecified, unspecified as acute or chronic, without hemorrhage or perforation; E87.6 Hypokalemia; E83.42 Hypomagnesemia; E11.59 Type 2 diabetes mellitus with other circulatory complications; D63.8 Anemia in other chronic diseases classified elsewhere; N20.0 Calculus of kidney; N28.89 Other specified disorders of kidney and ureter; Z79.4 Long term (current) use of insulin; Z79.82 Long term (current) use of aspirin; Z23 Encounter for immunization
CPT/HCPCS: 51702; 51798; 74176; 80048; 80053; 81003; 81015; 81099; 82570; 82607; 82728; 82746; 82805; 82962; 83036; 83516; 83520; 83540; 83550; 83615; 83690; 83735; 83970; 84100; 84155; 84156; 84165; 84300; 85014; 85018; 85025; 85027; 85045; 85652; 86038; 86063; 86160; 86335; 86850; 86900; 86901; 87086; 90677; 96361; 96374; 96375; 97162; 97166; 99285; G0009

== ENCOUNTER → 2024-12-26 12:47 | Outpatient (REF) | payer BC, SELFPAY | LOC: HWRAD 12:47 | PROVIDERS: ATTENDING PHYSICIAN Obstetrics & Gynecology; FAMILY PHYSICIAN Physician Assistant Medical | DX: D59.9 Acquired hemolytic anemia, unspecified (principal) | CPT/HCPCS: 76770 ==

== ENCOUNTER → 2024-12-30 08:07 | Outpatient (REF) | payer BC, SELFPAY | LOC: HWRAD 08:07 | PROVIDERS: ATTENDING PHYSICIAN Obstetrics & Gynecology; FAMILY PHYSICIAN Physician Assistant Medical | DX: D25.9 Leiomyoma of uterus, unspecified (principal) | CPT/HCPCS: 76830; 76856 ==

== ENCOUNTER → 2025-02-20 09:37 | Outpatient (REF) | payer BC, SELFPAY | LOC: RAD 09:37 | PROVIDERS: ATTENDING PHYSICIAN Surgery Vascular Surgery; FAMILY PHYSICIAN Physician Assistant | DX: I65.22 Occlusion and stenosis of left carotid artery (principal) | CPT/HCPCS: 93880 ==

== ENCOUNTER 2025-04-21 06:28 | Day surgery (SDC) | payer BC, SELFPAY ==
[2025-04-14 10:49] LABS: Hematocrit 33.3 % (37.0-47.0); Hemoglobin 10.9 g/dL (12.0-16.0); Mean Corp Hgb Conc. 32.7 g/dL (33.0-37.0); Mean Corpuscular Volume 91.2 fL (81.0-99.0); Platelet Count 277 10^3/uL (130-400); Red Cell Dist. Width 14.9 % (11.5-14.5)
[2025-04-14 11:27] LABS: Blood Urea Nitrogen 50 mg/dl (7-17); Calcium 11.6 mg/dl (8.4-10.2); Carbon Dioxide 19 mmol/L (22-30); Chloride 108 mmol/L (98-107); Glucose 140 mg/dl (70-99); Potassium 4.6 mmol/L (3.5-5.1); Sodium 140 mmol/L (135-145); eGFR 38.43
[2025-04-14 14:14] VITALS: BMI 30.3
[2025-04-21] VITALS (19 sets, daily range): BP systolic 84–152; BP diastolic 47–89; BMI 30.3
[2025-04-21] MEDS: HEPARIN 5000 UNITS SC (09:13)
[2025-04-21] MEDS: NORMOSOL-R/PLASMALYTE-A 1000 IV (09:17)
[2025-04-21 09:32] LABS: Glucose - Point of Care 163 mg/dl (70-99)
[2025-04-21 14:01] LABS: Glucose - Point of Care 224 mg/dl (70-99)
[2025-04-21] MEDS: SUBLIMAZE 25 MCG IV (14:08)
[2025-04-21] MEDS: NOVOLOG vial 2 UNITS SC (14:12)
[2025-04-21] MEDS: DILAUDID 0.25 MG IV (14:32)
[2025-04-21] MEDS: MOTRIN 600 MG PO (17:03)
== END 2025-04-21 17:52 | disposition home or self-care (01) ==
LOC: SDS 06:28
PROVIDERS: ATTENDING PHYSICIAN Obstetrics & Gynecology; FAMILY PHYSICIAN Physician Assistant
DX: D25.9 Leiomyoma of uterus, unspecified (principal); N80.03 Adenomyosis of the uterus; N84.0 Polyp of corpus uteri; N83.8 Other noninflammatory disorders of ovary, fallopian tube and broad ligament; D26.1 Other benign neoplasm of corpus uteri
CPT/HCPCS: 58573; 36415; 80048; 82962; 85027; 86850; 86900; 86901; 88307; 88341; 88342; 93005

== ENCOUNTER → 2025-06-08 14:44 | Outpatient (REF) | payer BC, SELFPAY | LOC: HWRAD 14:44 | PROVIDERS: ATTENDING PHYSICIAN Otolaryngology; FAMILY PHYSICIAN Physician Assistant | DX: D11.0 Benign neoplasm of parotid gland (principal) | CPT/HCPCS: 76536 ==